=== PATIENT | male | born 1950 | race Caucasian/White ===

== ENCOUNTER 2018-10-01 13:23 | Emergency (ER) | payer MEDICARE, MEDICAID ==
[~2018-10-01] VITALS: Ht 170.2 cm; Wt 75.0 kg
[2018-10-01] MEDS ORDERED: METF-414 PO (13:30)
[2018-10-01] MEDS ORDERED: ASPI-1159 PO (13:30)
[2018-10-01 15:09] LABS: EOSINOPHILS % 4.5 % (0.0-5.0); HEMATOCRIT. 38.6 % (42.0-52.0); HEMOGLOBIN. 12.8 g/dL (14.0-18.0); LYMPHOCYTES % 11.5 % (20.0-50.0); MEAN CORPUSCULAR HEMOGLOBIN 27.4 pg (28.0-32.0); MEAN CORPUSCULAR VOLUME 82.4 fL (80.0-94.0); MEAN PLATELET VOLUME 8.5 fl (7.4-10.4); MONOCYTES % 14.5 % (2.0-8.0); NEUTROPHILS % 68.5 % (40.0-76.0); PLATELET 234 x1000/uL (130-400); RED BLOOD CELL COUNT 4.68 mill/uL (4.7-6.1); RED CELL DISTRIBUTION WIDTH 14.7 % (11.6-14.6)
[2018-10-01 15:13] LABS: CHLORIDE 96 mEq/L (98-107)
[2018-10-01 15:15] LABS: INR 1.1; PARTIAL THROMBOPLASTIN TIME 30.3 sec (23.4-31.0); PROTHROMBIN TIME 11.5 sec (9.1-11.1)
[2018-10-01] MEDS ORDERED: SODIUM CHLORIDE 0.9% 1,000 ML IV ONE (17:00)
[2018-10-01] MEDS ORDERED: MORPHINE SULFATE 4 MG/ML CPJ (NOT FOR IM USE) IV ONE (17:00)
[2018-10-01] MEDS ORDERED: ONDANSETRON HCL 4MG/2ML INJ IV ONE (17:00)
[2018-10-01 18:49] VITALS: BP 128/75
== END 2018-10-01 19:00 | disposition home or self-care (01) ==
LOC: ER 13:31
DX: K40.90 Unilateral inguinal hernia, without obstruction or gangrene, not specified as recurrent (principal); E11.649 Type 2 diabetes mellitus with hypoglycemia without coma; F17.210 Nicotine dependence, cigarettes, uncomplicated
CPT/HCPCS: 36415; 74176; 80053; 83690; 85025; 85610; 85730; 96360; 99284; J7030

== ENCOUNTER 2018-12-07 02:17 | Inpatient (IN) | payer MEDICARE, MEDICAID ==
[~2018-12-07] VITALS: Ht 152.4 cm; Wt 59.4 kg
[~2018-12-07 02:17] MED LIST: ASPI-1159 PO; METF-414 PO
[2018-12-07 03:07] LABS: BASOPHILS % 0.5 % (0.0-2.0); EOSINOPHILS % 14.3 % (0.0-5.0); HEMATOCRIT. 34.3 % (42.0-52.0); HEMOGLOBIN. 11.4 g/dL (14.0-18.0); LYMPHOCYTES % 12.5 % (20.0-50.0); MEAN CORPUSCULAR HEMOGLOBIN 27.5 pg (28.0-32.0); MEAN CORPUSCULAR VOLUME 82.7 fL (80.0-94.0); MEAN PLATELET VOLUME 8.8 fl (7.4-10.4); MONOCYTES % 9.3 % (2.0-8.0); NEUTROPHILS % 63.4 % (40.0-76.0); PLATELET 248 x1000/uL (130-400); RED BLOOD CELL COUNT 4.15 mill/uL (4.7-6.1); RED CELL DISTRIBUTION WIDTH 17.2 % (11.6-14.6)
[2018-12-07 03:08] LABS: CHLORIDE 101 mEq/L (98-107)
[2018-12-07] MEDS ORDERED: MORPHINE SULFATE 4 MG/ML CPJ (NOT FOR IM USE) IV PRN (08:30)
[2018-12-07] MEDS ORDERED: DOCUSATE SODIUM 100MG CAPSULE PO PRN (08:30)
[2018-12-07] MEDS ORDERED: MAGNESIUM/ALUMINUM HYDROXIDE/SIMETHICONE 30ML UDC PO PRN (08:30)
[2018-12-07] MEDS ORDERED: IPRATROPIUM/ALBUTEROL 0.5-3(2.5)MG/3ML NEB INH PRN (08:30)
[2018-12-07] MEDS ORDERED: NITROGLYCERIN 0.4MG TABLET SL SL PRN (08:30)
[2018-12-07] MEDS ORDERED: ZOLPIDEM TARTRATE 5MG TABLET PO PRN (08:30)
[2018-12-07] MEDS ORDERED: GUAIFENESIN 200MG/10ML SUGAR FREE UDC PO PRN (08:30)
[2018-12-07] MEDS ORDERED: LORAZEPAM 0.5MG TABLET PO PRN (08:30)
[2018-12-07] MEDS ORDERED: ACETAMINOPHEN 325MG TABLET PO PRN (08:30)
[2018-12-07] MEDS ORDERED: ONDANSETRON HCL 4MG/2ML INJ IV PRN (08:30)
[2018-12-07] MEDS ORDERED: CLONIDINE 0.1MG TABLET PO PRN (08:30)
[2018-12-07] MEDS ORDERED: TRAMADOL 50MG TABLET PO PRN (08:30)
[2018-12-07 09:24] LABS: T4 FREE 1.28 ng/dL (0.76-1.46)
[2018-12-07 09:38] LABS: INR 1.1; PARTIAL THROMBOPLASTIN TIME 30.1 sec (23.4-31.0); PROTHROMBIN TIME 11.4 sec (9.6-11.0)
[2018-12-07 09:44] LABS: FOLIC ACID (FOLATE) SERUM 6.2 ng/mL (>5.38)
[2018-12-07 10:15] VITALS: BP 132/88
[2018-12-07] MEDS: ENOXAPARIN 40MG/0.4ML SYR SUBCUT SCH (10:30)
[2018-12-07 12:00] VITALS: BP 111/73
[2018-12-07] MEDS: GUAIFENESIN/DM 600MG/30MG ER TAB 12HR PO SCH ×2 (12:18→20:36)
[2018-12-07] MEDS: FUROSEMIDE 40MG/4ML VIAL IVP SCH ×2 (12:18→16:52)
[2018-12-07] MEDS: FAMOTIDINE 20MG TABLET PO SCH ×2 (12:18→20:36)
[2018-12-07] MEDS ORDERED: DEXTROSE 50% WATER 50ML SYRINGE IV PRN (14:15)
[2018-12-07 16:00] VITALS: BP 115/82
[2018-12-07] MEDS: BLOOD SUGAR DIAGNOSTIC STRIP TEST SCH ×2 (16:42→20:37)
[2018-12-07] MEDS: INSULIN LISPRO 100 UNITS/ML SUBCUT SCH ×2 (16:56→20:37)
[2018-12-07 18:44] LABS: CREATINE KINASE 40 IU/L (39-308)
[2018-12-07 18:47] LABS: CREATINE KINASE MB FRACTION 1.3 ng/mL (0.5-3.6)
[2018-12-07 20:00] VITALS: BP 103/65
[2018-12-08] VITALS: BP 117/72
[2018-12-08 01:21] LABS: CREATINE KINASE 35 IU/L (39-308)
[2018-12-08 01:22] LABS: CREATINE KINASE MB FRACTION < 1.0 ng/mL (0.5-3.6)
[2018-12-08 04:00] VITALS: BP 112/70
[2018-12-08] MEDS: BLOOD SUGAR DIAGNOSTIC STRIP TEST SCH ×4 (06:25→21:28)
[2018-12-08] MEDS: INSULIN LISPRO 100 UNITS/ML SUBCUT SCH ×4 (06:25→21:28)
[2018-12-08] MEDS: FUROSEMIDE 40MG/4ML VIAL IVP SCH ×2 (06:25→17:44)
[2018-12-08 08:00] VITALS: BP 113/73
[2018-12-08] MEDS: GUAIFENESIN/DM 600MG/30MG ER TAB 12HR PO SCH ×2 (09:50→21:27)
[2018-12-08] MEDS: FAMOTIDINE 20MG TABLET PO SCH ×2 (09:50→21:27)
[2018-12-08 12:00] VITALS: BP 103/66
[2018-12-08 16:00] VITALS: BP 104/64
[2018-12-08 20:00] VITALS: BP 105/68
[2018-12-09] VITALS: BP 108/72
[2018-12-09 04:00] VITALS: BP 110/70
[2018-12-09] MEDS: FUROSEMIDE 40MG/4ML VIAL IVP SCH ×2 (06:20→16:23)
[2018-12-09] MEDS: INSULIN LISPRO 100 UNITS/ML SUBCUT SCH ×4 (06:20→21:03)
[2018-12-09] MEDS: BLOOD SUGAR DIAGNOSTIC STRIP TEST SCH ×4 (06:20→20:52)
[2018-12-09 08:00] VITALS: BP 112/68
[2018-12-09] MEDS: GUAIFENESIN/DM 600MG/30MG ER TAB 12HR PO SCH ×2 (08:49→20:52)
[2018-12-09] MEDS: FAMOTIDINE 20MG TABLET PO SCH ×2 (08:49→20:52)
[2018-12-09] MEDS: ASPIRIN 81MG TABLET PO SCH (08:49)
[2018-12-09] MEDS: ENOXAPARIN 40MG/0.4ML SYR SUBCUT SCH (08:50)
[2018-12-09 12:00] VITALS: BP 114/65
[2018-12-09 16:00] VITALS: BP 114/65
[2018-12-10] VITALS: BP 101/67
[2018-12-10 03:57] VITALS: BP 98/63
[2018-12-10] MEDS: FUROSEMIDE 40MG/4ML VIAL IVP SCH ×2 (06:11→17:34)
[2018-12-10] MEDS: INSULIN LISPRO 100 UNITS/ML SUBCUT SCH ×4 (07:40→22:09)
[2018-12-10] MEDS: BLOOD SUGAR DIAGNOSTIC STRIP TEST SCH ×4 (07:41→21:00)
[2018-12-10 08:00] VITALS: BP 101/68
[2018-12-10] MEDS: GUAIFENESIN/DM 600MG/30MG ER TAB 12HR PO SCH ×2 (08:50→21:46)
[2018-12-10] MEDS: ASPIRIN 81MG TABLET PO SCH (08:50)
[2018-12-10] MEDS: FAMOTIDINE 20MG TABLET PO SCH ×2 (08:50→21:46)
[2018-12-10] MEDS: ENOXAPARIN 40MG/0.4ML SYR SUBCUT SCH (08:50)
[2018-12-10 11:50] VITALS: BP 114/79
[2018-12-10 16:00] VITALS: BP 100/65
[2018-12-10 20:00] VITALS: BP 111/64
[2018-12-11] VITALS: BP 110/75
[2018-12-11 04:00] VITALS: BP 105/67
[2018-12-11] MEDS: BLOOD SUGAR DIAGNOSTIC STRIP TEST SCH ×2 (06:13→12:10)
[2018-12-11] MEDS: INSULIN LISPRO 100 UNITS/ML SUBCUT SCH ×2 (06:13→14:02)
[2018-12-11] MEDS: FUROSEMIDE 40MG/4ML VIAL IVP SCH (06:13)
[2018-12-11 08:00] VITALS: BP 109/66
[2018-12-11] MEDS: FAMOTIDINE 20MG TABLET PO SCH (09:31)
[2018-12-11] MEDS: GUAIFENESIN/DM 600MG/30MG ER TAB 12HR PO SCH (09:31)
[2018-12-11] MEDS: ASPIRIN 81MG TABLET PO SCH (09:31)
[2018-12-11] MEDS: ENOXAPARIN 40MG/0.4ML SYR SUBCUT SCH (09:32)
[2018-12-11 11:06] VITALS: BP 109/66
[2019-01-01] MEDS ORDERED: COR3 PO (07:59)
[2019-01-01] MEDS ORDERED: PULM50 HHN (07:59)
[2019-01-01] MEDS ORDERED: FURO-151 MT (07:59)
[2019-01-01] MEDS ORDERED: WARF5TAB76 MT (07:59)
[2019-01-01] MEDS ORDERED: LISI2.5T47 PO (07:59)
== END 2018-12-11 16:35 | disposition home health service (06) | DRG 189 ==
LOC: ER 02:17 → 8WST 04:05 → EDBEDREQ 04:09 → EDBEDREQTM 04:09 → ENRESERV 07:41 → SUPCPDRO 08:23 → 8WST 10:15
PROVIDERS: ADMIT Internal Medicine; ATTEND Internal Medicine
PROC: 0W9B3ZZ Drainage of Left Pleural Cavity, Percutaneous Approach (ICD-10-PCS; principal; 2018-12-07)
DX: J96.01 Acute respiratory failure with hypoxia (principal); I50.23 Acute on chronic systolic (congestive) heart failure; E44.1 Mild protein-calorie malnutrition; I42.9 Cardiomyopathy, unspecified; J91.8 Pleural effusion in other conditions classified elsewhere; E11.65 Type 2 diabetes mellitus with hyperglycemia; I11.0 Hypertensive heart disease with heart failure; D63.8 Anemia in other chronic diseases classified elsewhere; D72.1 Eosinophilia; I25.10 Atherosclerotic heart disease of native coronary artery without angina pectoris; Z79.4 Long term (current) use of insulin; Z79.82 Long term (current) use of aspirin; Z87.891 Personal history of nicotine dependence; Z95.1 Presence of aortocoronary bypass graft; Z95.5 Presence of coronary angioplasty implant and graft; Z95.810 Presence of automatic (implantable) cardiac defibrillator; Z68.25 Body mass index [BMI] 25.0-25.9, adult; Z79.899 Other long term (current) drug therapy
CPT/HCPCS: 32555; 36415; 71045; 78580; 80061; 82040; 82550; 82553; 82607; 82746; 82962; 83036; 83540; 83550; 83615; 83880; 84439; 84443; 84484; 85379; 88108; 88312; 93005; 93306; 93970; 97165; 99285; J1650; J1815; J1940

== ENCOUNTER 2018-12-29 07:07 | Inpatient (IN) | payer MEDICARE, MEDICAID ==
[~2018-12-29] VITALS: Ht 170.2 cm; Wt 57.7 kg
[2018-12-29] MEDS ORDERED: ASPIRIN 325MG EC TABLET PO ONE (08:15)
[2018-12-29] MEDS ORDERED: NITROGLYCERIN OINT 1GM/INCH UDPKT TD ONE (08:15)
[2018-12-29 08:25] LABS: BASOPHILS % 1.1 % (0.0-2.0); EOSINOPHILS % 7.4 % (0.0-5.0); HEMATOCRIT. 37.4 % (42.0-52.0); HEMOGLOBIN. 12.4 g/dL (14.0-18.0); LYMPHOCYTES % 12.8 % (20.0-50.0); MEAN CORPUSCULAR HEMOGLOBIN 27.4 pg (28.0-32.0); MEAN CORPUSCULAR VOLUME 82.5 fL (80.0-94.0); MEAN PLATELET VOLUME 9.2 fl (7.4-10.4); MONOCYTES % 5.7 % (2.0-8.0); PLATELET 259 x1000/uL (130-400); RED BLOOD CELL COUNT 4.53 mill/uL (4.7-6.1); RED CELL DISTRIBUTION WIDTH 17.1 % (11.6-14.6)
[2018-12-29 08:30] LABS: CHLORIDE 101 mEq/L (98-107)
[2018-12-29 08:31] LABS: INR 1.1; PROTHROMBIN TIME 11.3 sec (9.6-11.0)
[2018-12-29] MEDS ORDERED: FUROSEMIDE 40MG/4ML VIAL IVP ONE (08:45)
[2018-12-29 15:13] VITALS: BP 119/80
[2018-12-29] MEDS: FUROSEMIDE 40MG/4ML VIAL IVP SCH (17:24)
[2018-12-29] MEDS ORDERED: HYDROCODONE/ACETAMINOPHEN 5/325MG TABLET PO PRN (18:00)
[2018-12-29] MEDS ORDERED: ACETAMINOPHEN 650MG SUPP PR PRN (18:00)
[2018-12-29] MEDS ORDERED: ACETAMINOPHEN 325MG TABLET PO PRN (18:00)
[2018-12-29] MEDS ORDERED: ONDANSETRON HCL 4MG/2ML INJ IV PRN (18:00)
[2018-12-29] MEDS ORDERED: MAGNESIUM/ALUMINUM HYDROXIDE/SIMETHICONE 30ML UDC PO PRN (18:00)
[2018-12-29] MEDS ORDERED: DOCUSATE SODIUM 100MG CAPSULE PO PRN (18:00)
[2018-12-29] MEDS ORDERED: IPRATROPIUM/ALBUTEROL 0.5-3(2.5)MG/3ML NEB INH PRN (18:00)
[2018-12-29] MEDS ORDERED: GUAIFENESIN 200MG/10ML SUGAR FREE UDC PO PRN (18:00)
[2018-12-29] MEDS ORDERED: ACETAMINOPHEN 650MG/20.3ML UDC GT PRN (18:00)
[2018-12-29] MEDS ORDERED: CLONIDINE 0.1MG TABLET PO PRN (18:00)
[2018-12-29] MEDS ORDERED: DIPHENHYDRAMINE 50MG/ML VIAL IV PRN (18:00)
[2018-12-29] MEDS ORDERED: IPRATROPIUM/ALBUTEROL 0.5-3(2.5)MG/3ML NEB HHN PRN (18:15)
[2018-12-29 18:18] LABS: BG BASE EXCESS 3.1 mmol/L (-2.0-2.0); BG CARBOXYHEMOGLOBIN 0.6 % (0.5-1.5); BG DEOXYHEMOGLOBIN 0.8 % (0.0-5.0); BG HCO3 ACT 27.4 mmol/L (22.0-26.0); BG METHEMOGLOBIN 0.1 % (0.0-1.5); BG OXYGEN SATURATION 99.2 % (92.0-98.5); BG OXYHEMOGLOBIN 98.5 % (94.0-97.0); BG PCO2 40.8 mmHg (35.0-45.0); BG PH 7.445 (7.350-7.450); BG PO2 184.2 mmHg (75.0-100.0); BG SAMPLE SITE RIGHT BRACHIAL; BG TOTAL HEMOGLOBIN 12.1 g/dL (12.0-18.0); BG VENT MODE NASAL CANNULA
[2018-12-29] MEDS ORDERED: MORPHINE SULFATE 2 MG/ML CPJ (NOT FOR IM USE) IV PRN (18:30)
[2018-12-29] MEDS ORDERED: DEXTROSE 50% WATER 50ML SYRINGE IV PRN (18:30)
[2018-12-29 20:00] VITALS: BP 125/80
[2018-12-29] MEDS: ENOXAPARIN 40MG/0.4ML SYR SUBCUT SCH (20:00)
[2018-12-29 20:41] LABS: CLARITY URINE CLEAR (CLEAR); COLOR URINE YELLOW (YELLOW); KETONES URINE NEGATIVE (NEGATIVE); LEUKOCYTE ESTERASE URINE NEGATIVE (NEGATIVE); NITRITE URINE NEGATIVE (NEGATIVE); OCCULT BLOOD URINE NEGATIVE (NEGATIVE); PROTEIN URINE 1+ (NEGATIVE); SPECIFIC GRAVITY URINE 1.007 (1.005-1.030)
[2018-12-29] MEDS ORDERED: NA PHOS,M-B/NA PHOS,DI-BA ENEMA 118ML PR PRN (21:00)
[2018-12-29] MEDS: BLOOD SUGAR DIAGNOSTIC STRIP TEST SCH (21:08)
[2018-12-29] MEDS: INSULIN LISPRO 100 UNITS/ML SUBCUT SCH (21:08)
[2018-12-29] MEDS: SODIUM CHLORIDE 0.9% INJ 3ML FLUSH IVF SCH (21:10)
[2018-12-29] MEDS: IPRATROPIUM/ALBUTEROL 0.5-3(2.5)MG/3ML NEB HHN SCH (22:09)
[2018-12-30] VITALS: BP 120/81
[2018-12-30 04:00] VITALS: BP 110/76
[2018-12-30] MEDS: SODIUM CHLORIDE 0.9% INJ 3ML FLUSH IVF SCH ×2 (06:05→14:00)
[2018-12-30 06:12] LABS: BASOPHILS % 0.7 % (0.0-2.0); EOSINOPHILS % 7.3 % (0.0-5.0); HEMATOCRIT. 31.2 % (42.0-52.0); HEMOGLOBIN. 10.4 g/dL (14.0-18.0); LYMPHOCYTES % 10.4 % (20.0-50.0); MEAN CORPUSCULAR VOLUME 80.8 fL (80.0-94.0); MONOCYTES % 7.8 % (2.0-8.0); NEUTROPHILS % 73.8 % (40.0-76.0); PLATELET 224 x1000/uL (130-400); RED BLOOD CELL COUNT 3.86 mill/uL (4.7-6.1)
[2018-12-30 06:37] LABS: CHLORIDE 100 mEq/L (98-107)
[2018-12-30 06:45] LABS: HDL CHOLESTEROL 51 mg/dL (40-59)
[2018-12-30 06:47] LABS: LDL CHOLESTEROL 68 mg/dL (5-100)
[2018-12-30] MEDS: BLOOD SUGAR DIAGNOSTIC STRIP TEST SCH ×4 (07:40→20:28)
[2018-12-30 08:00] VITALS: BP 121/82
[2018-12-30] MEDS: INSULIN LISPRO 100 UNITS/ML SUBCUT SCH ×4 (08:10→20:28)
[2018-12-30] MEDS: IPRATROPIUM/ALBUTEROL 0.5-3(2.5)MG/3ML NEB HHN SCH ×4 (08:24→21:31)
[2018-12-30 09:13] LABS: CANNABINOID URINE SCREEN NEGATIVE (NEGATIVE)
[2018-12-30 09:15] LABS: METHADONE URINE SCREEN NEGATIVE (NEGATIVE)
[2018-12-30 09:16] LABS: PHENCYCLIDINE URINE SCREEN NEGATIVE (NEGATIVE)
[2018-12-30 09:17] LABS: *BARBITURATES SCREEN URINE NEGATIVE (NEGATIVE)
[2018-12-30 09:18] LABS: *BENZODIAZEPINES SCREEN URINE NEGATIVE (NEGATIVE); *COCAINE SCREEN URINE NEGATIVE (NEGATIVE)
[2018-12-30 09:20] LABS: OPIATES URINE SCREEN NEGATIVE (NEGATIVE)
[2018-12-30 09:21] LABS: *AMPHETAMINES SCREEN URINE NEGATIVE (NEGATIVE)
[2018-12-30] MEDS: FUROSEMIDE 40MG/4ML VIAL IVP SCH ×2 (09:27→16:44)
[2018-12-30 12:00] VITALS: BP 116/76
[2018-12-30 20:00] VITALS: BP 114/73
[2018-12-30] MEDS: ENOXAPARIN 40MG/0.4ML SYR SUBCUT SCH (20:00)
[2018-12-31] VITALS: BP 120/77
[2018-12-31] MEDS: SODIUM CHLORIDE 0.9% INJ 3ML FLUSH IVF SCH ×4 (00:11→21:21)
[2018-12-31 04:00] VITALS: BP 117/80
[2018-12-31] MEDS: BLOOD SUGAR DIAGNOSTIC STRIP TEST SCH ×4 (06:46→20:39)
[2018-12-31 08:00] VITALS: BP 105/68
[2018-12-31] MEDS: INSULIN LISPRO 100 UNITS/ML SUBCUT SCH ×4 (08:10→20:39)
[2018-12-31] MEDS: IPRATROPIUM/ALBUTEROL 0.5-3(2.5)MG/3ML NEB HHN SCH ×3 (08:22→20:14)
[2018-12-31] MEDS: FUROSEMIDE 40MG/4ML VIAL IVP SCH ×2 (09:17→17:03)
[2018-12-31] MEDS ORDERED: SODIUM BICARBONATE 4% (2.4MEQ) 5ML VIAL IV ONE (09:54)
[2018-12-31 12:00] VITALS: BP 129/78
[2018-12-31 16:00] VITALS: BP 118/59
[2018-12-31] MEDS: LISINOPRIL 2.5MG TABLET PO SCH (17:03)
[2018-12-31] MEDS ORDERED: WARFARIN SODIUM 7.5MG TABLET PO SCH (18:00)
[2018-12-31 20:00] VITALS: BP 105/67
[2018-12-31] MEDS: BUDESONIDE 0.5MG/2ML NEB HHN SCH (20:14)
[2018-12-31] MEDS: CARVEDILOL 3.125 MG TABLET PO SCH (20:40)
[2019-01-01] VITALS: BP 108/68
[2019-01-01] MEDS: IPRATROPIUM/ALBUTEROL 0.5-3(2.5)MG/3ML NEB HHN SCH ×3 (01:10→22:01)
[2019-01-01 04:00] VITALS: BP 101/69
[2019-01-01] MEDS: SODIUM CHLORIDE 0.9% INJ 3ML FLUSH IVF SCH ×4 (05:53→21:13)
[2019-01-01] MEDS: BLOOD SUGAR DIAGNOSTIC STRIP TEST SCH ×4 (06:58→20:34)
[2019-01-01 07:02] LABS: INR 1.1; PROTHROMBIN TIME 11.5 sec (9.6-11.0)
[2019-01-01] MEDS ORDERED: WARF5TAB76 MT (07:59)
[2019-01-01] MEDS ORDERED: PULM50 HHN (07:59)
[2019-01-01] MEDS ORDERED: COR3 PO (07:59)
[2019-01-01] MEDS ORDERED: LISI2.5T47 PO (07:59)
[2019-01-01] MEDS ORDERED: FURO-151 MT (07:59)
[2019-01-01 08:00] VITALS: BP 110/74
[2019-01-01] MEDS: BUDESONIDE 0.5MG/2ML NEB HHN SCH ×2 (08:05→22:01)
[2019-01-01] MEDS: INSULIN LISPRO 100 UNITS/ML SUBCUT SCH ×4 (08:10→21:13)
[2019-01-01] MEDS: LISINOPRIL 2.5MG TABLET PO SCH (09:00)
[2019-01-01] MEDS: CARVEDILOL 3.125 MG TABLET PO SCH ×2 (09:00→20:34)
[2019-01-01] MEDS: FUROSEMIDE 40MG/4ML VIAL IVP SCH ×2 (09:45→19:10)
[2019-01-01 12:00] VITALS: BP 118/79
[2019-01-01 16:00] VITALS: BP 116/79
[2019-01-01 16:45] LABS: CHLORIDE 96 mEq/L (98-107)
[2019-01-01 16:49] LABS: BASOPHILS % 0.8 % (0.0-2.0); EOSINOPHILS % 8.3 % (0.0-5.0); HEMATOCRIT. 35.8 % (42.0-52.0); HEMOGLOBIN. 11.8 g/dL (14.0-18.0); LYMPHOCYTES % 8.8 % (20.0-50.0); MEAN CORPUSCULAR HEMOGLOBIN 27.1 pg (28.0-32.0); MEAN PLATELET VOLUME 8.7 fl (7.4-10.4); MONOCYTES % 11.9 % (2.0-8.0); NEUTROPHILS % 70.2 % (40.0-76.0); PLATELET 242 x1000/uL (130-400); RED BLOOD CELL COUNT 4.37 mill/uL (4.7-6.1)
[2019-01-01] MEDS ORDERED: WARFARIN SODIUM 10MG TABLET PO NR (18:00)
[2019-01-01] MEDS: APIXABAN 5 MG TABLET PO SCH (19:10)
[2019-01-01 20:00] VITALS: BP 113/73
[2019-01-01] MEDS ORDERED: ENOXAPARIN 60MG/0.6ML SYR SUBCUT SCH (21:00)
[2019-01-02] VITALS: BP 111/73
[2019-01-02] MEDS: IPRATROPIUM/ALBUTEROL 0.5-3(2.5)MG/3ML NEB HHN SCH ×3 (02:35→15:35)
[2019-01-02 04:00] VITALS: BP 110/59
[2019-01-02] MEDS: BLOOD SUGAR DIAGNOSTIC STRIP TEST SCH ×2 (05:44→13:27)
[2019-01-02] MEDS: SODIUM CHLORIDE 0.9% INJ 3ML FLUSH IVF SCH (05:44)
[2019-01-02 08:00] VITALS: BP 124/71
[2019-01-02] MEDS: BUDESONIDE 0.5MG/2ML NEB HHN SCH (08:23)
[2019-01-02] MEDS: FUROSEMIDE 40MG/4ML VIAL IVP SCH (09:34)
[2019-01-02] MEDS: LISINOPRIL 2.5MG TABLET PO SCH (09:34)
[2019-01-02] MEDS: CARVEDILOL 3.125 MG TABLET PO SCH (09:35)
[2019-01-02] MEDS: APIXABAN 5 MG TABLET PO SCH (09:41)
[2019-01-02] MEDS: INSULIN LISPRO 100 UNITS/ML SUBCUT SCH ×2 (09:54→13:50)
[2019-01-02 12:00] VITALS: BP 107/65
[2019-01-02] MEDS ORDERED: APIX5TAB PO (13:03)
[2019-01-02 16:00] VITALS: BP 126/68
[2019-01-02 16:20] VITALS: BP 126/68
== END 2019-01-02 18:50 | disposition home or self-care (01) | DRG 291 ==
LOC: ER 07:07 → 7WST 09:52 → EDBEDREQ 10:10 → ENRESERV 14:18
PROVIDERS: ADMIT Family Medicine; ATTEND Family Medicine
PROC: 0W9B3ZZ Drainage of Left Pleural Cavity, Percutaneous Approach (ICD-10-PCS; principal; 2018-12-31)
DX: I11.0 Hypertensive heart disease with heart failure (principal); J96.00 Acute respiratory failure, unspecified whether with hypoxia or hypercapnia; J44.1 Chronic obstructive pulmonary disease with (acute) exacerbation; I31.3 Pericardial effusion (noninflammatory); J84.9 Interstitial pulmonary disease, unspecified; J91.8 Pleural effusion in other conditions classified elsewhere; I50.43 Acute on chronic combined systolic (congestive) and diastolic (congestive) heart failure; I25.5 Ischemic cardiomyopathy; D72.1 Eosinophilia; E11.9 Type 2 diabetes mellitus without complications; E78.5 Hyperlipidemia, unspecified; I25.10 Atherosclerotic heart disease of native coronary artery without angina pectoris; I25.2 Old myocardial infarction; Z87.891 Personal history of nicotine dependence; Z90.49 Acquired absence of other specified parts of digestive tract; Z95.0 Presence of cardiac pacemaker; Z95.1 Presence of aortocoronary bypass graft; Z95.5 Presence of coronary angioplasty implant and graft; Z95.810 Presence of automatic (implantable) cardiac defibrillator; Z79.82 Long term (current) use of aspirin; Z79.899 Other long term (current) drug therapy
CPT/HCPCS: 32555; 36415; 36600; 71045; 71250; 80061; 80305; 82375; 82805; 82962; 83605; 83880; 84484; 93005; 93306; 94640; 96374; 96375; 99291; J1815; J1940; J3490; J7620; J7626

== ENCOUNTER 2019-01-26 22:57 | Inpatient (IN) | payer MEDICARE, MEDICAID ==
[~2019-01-26] VITALS: Ht 167.6 cm; Wt 59.4 kg
[~2019-01-26 22:57] MED LIST changes: +APIX5TAB PO; -ASPI-1159 PO; +COR3 PO; +FURO-151 MT
[2019-01-27] MEDS ORDERED: IPRATROPIUM/ALBUTEROL 0.5-3(2.5)MG/3ML NEB INH PRN (01:00)
[2019-01-27] MEDS ORDERED: ACETAMINOPHEN 325MG TABLET PO PRN (01:00)
[2019-01-27 01:15] LABS: BASOPHILS % 0.5 % (0.0-2.0); EOSINOPHILS % 1.7 % (0.0-5.0); HEMATOCRIT. 35.4 % (42.0-52.0); HEMOGLOBIN. 11.6 g/dL (14.0-18.0); LYMPHOCYTES % 7.8 % (20.0-50.0); MEAN CORPUSCULAR HEMOGLOBIN 27.3 pg (28.0-32.0); MEAN CORPUSCULAR VOLUME 83.3 fL (80.0-94.0); MEAN PLATELET VOLUME 8.8 fl (7.4-10.4); MONOCYTES % 7.6 % (2.0-8.0); NEUTROPHILS % 82.4 % (40.0-76.0); PLATELET 217 x1000/uL (130-400); RED BLOOD CELL COUNT 4.25 mill/uL (4.7-6.1); RED CELL DISTRIBUTION WIDTH 17.8 % (11.6-14.6)
[2019-01-27 01:22] LABS: CHLORIDE 102 mEq/L (98-107)
[2019-01-27 01:24] LABS: INR 1.1; PARTIAL THROMBOPLASTIN TIME 27.5 sec (23.4-31.0); PROTHROMBIN TIME 11.3 sec (9.6-11.0)
[2019-01-27] MEDS ORDERED: METHYLPREDNISOLONE SOD SUCC 125 MG/2 ML VIAL IV NR (02:00)
[2019-01-27] MEDS ORDERED: ENOXAPARIN 40MG/0.4ML SYR SUBCUT NR (02:00)
[2019-01-27] MEDS ORDERED: ASPIRIN 81MG EC TABLET PO NR (04:45)
[2019-01-27] MEDS ORDERED: METOPROLOL TARTRATE 25MG TABLET PO NR (04:45)
[2019-01-27] MEDS ORDERED: METOPROLOL TARTRATE 5MG/5ML VIAL IV NR (04:45)
[2019-01-27 06:20] LABS: CLARITY URINE CLOUDY (CLEAR); COLOR URINE DARK YELLOW (YELLOW); KETONES URINE TRACE (NEGATIVE); LEUKOCYTE ESTERASE URINE NEGATIVE (NEGATIVE); NITRITE URINE NEGATIVE (NEGATIVE); OCCULT BLOOD URINE 1+ (NEGATIVE); PROTEIN URINE 4+ (NEGATIVE); SPECIFIC GRAVITY URINE 1.038 (1.005-1.030)
[2019-01-27 06:35] LABS: *AMPHETAMINES SCREEN URINE NEGATIVE (NEGATIVE); *BARBITURATES SCREEN URINE NEGATIVE (NEGATIVE); *BENZODIAZEPINES SCREEN URINE NEGATIVE (NEGATIVE); *COCAINE SCREEN URINE NEGATIVE (NEGATIVE)
[2019-01-27 06:36] LABS: CANNABINOID URINE SCREEN NEGATIVE (NEGATIVE); METHADONE URINE SCREEN NEGATIVE (NEGATIVE); OPIATES URINE SCREEN NEGATIVE (NEGATIVE); PHENCYCLIDINE URINE SCREEN NEGATIVE (NEGATIVE)
[2019-01-27 08:00] VITALS: BP 128/87
[2019-01-27] MEDS ORDERED: METHYLPREDNISOLONE SOD SUCC 125 MG/2 ML VIAL IV SCH (08:00)
[2019-01-27] MEDS ORDERED: FUROSEMIDE 40MG/4ML VIAL IV SCH (09:00)
[2019-01-27] MEDS: FOLIC ACID 1MG TABLET PO SCH (09:21)
[2019-01-27 12:00] VITALS: BP 132/83
[2019-01-27] MEDS: ENOXAPARIN 60MG/0.6ML SYR SUBCUT SCH (15:00)
[2019-01-27] MEDS ORDERED: IPRATROPIUM/ALBUTEROL 0.5-3(2.5)MG/3ML NEB HHN PRN (15:15)
[2019-01-27 15:38] LABS: BG BASE EXCESS -1.6 mmol/L (-2.0-2.0); BG CARBOXYHEMOGLOBIN 0.2 % (0.5-1.5); BG DEOXYHEMOGLOBIN 0.5 % (0.0-5.0); BG METHEMOGLOBIN 0.3 % (0.0-1.5); BG OXYGEN SATURATION 99.5 % (92.0-98.5); BG PCO2 33.4 mmHg (35.0-45.0); BG PH 7.437 (7.350-7.450); BG PO2 286.4 mmHg (75.0-100.0); BG SAMPLE SITE RIGHT BRACHIAL; BG TOTAL HEMOGLOBIN 11.8 g/dL (12.0-18.0); BG VENT MODE MASK - NRB
[2019-01-27 17:06] VITALS: BP 121/88
[2019-01-27 17:40] LABS: CREATINE KINASE MB FRACTION 2.2 ng/mL (0.5-3.6)
[2019-01-27] MEDS ORDERED: INSULIN LISPRO 100 UNITS/ML SUBCUT ONE (17:45)
[2019-01-27] MEDS: INSULIN LISPRO 100 UNITS/ML SUBCUT SCH ×2 (17:55→21:48)
[2019-01-27] MEDS: BLOOD SUGAR DIAGNOSTIC STRIP TEST SCH ×2 (17:56→20:25)
[2019-01-27] MEDS: FUROSEMIDE 40MG/4ML VIAL IV SCH (17:56)
[2019-01-27] MEDS ORDERED: WARFARIN SODIUM 7.5MG TABLET PO SCH (18:00)
[2019-01-27 20:00] VITALS: BP 131/91
[2019-01-27] MEDS ORDERED: ENOXAPARIN 40MG/0.4ML SYR SUBCUT SCH (21:00)
[2019-01-27] MEDS: INSULIN GLARGINE UD 100 UNITS/ML SYR SUBCUT SCH (21:45)
[2019-01-27] MEDS: IPRATROPIUM/ALBUTEROL 0.5-3(2.5)MG/3ML NEB HHN SCH (22:06)
[2019-01-28] VITALS: BP 120/78
[2019-01-28] MEDS: ENOXAPARIN 60MG/0.6ML SYR SUBCUT SCH (01:43)
[2019-01-28 04:00] VITALS: BP 127/97
[2019-01-28] MEDS: BLOOD SUGAR DIAGNOSTIC STRIP TEST SCH ×4 (05:48→21:00)
[2019-01-28] MEDS: FUROSEMIDE 40MG/4ML VIAL IV SCH ×2 (06:01→17:35)
[2019-01-28] MEDS: INSULIN LISPRO 100 UNITS/ML SUBCUT SCH ×4 (06:05→21:00)
[2019-01-28 06:42] LABS: INR 1.1; PROTHROMBIN TIME 11.4 sec (9.6-11.0)
[2019-01-28 06:43] LABS: HEMATOCRIT. 34.1 % (42.0-52.0); HEMOGLOBIN. 11.1 g/dL (14.0-18.0); MEAN CORPUSCULAR HEMOGLOBIN 27.1 pg (28.0-32.0); MEAN PLATELET VOLUME 9.4 fl (7.4-10.4); PLATELET 208 x1000/uL (130-400); RED BLOOD CELL COUNT 4.11 mill/uL (4.7-6.1); RED CELL DISTRIBUTION WIDTH 17.5 % (11.6-14.6)
[2019-01-28 07:02] LABS: CHLORIDE 100 mEq/L (98-107)
[2019-01-28] MEDS ORDERED: ASPIRIN 81MG EC TABLET PO SCH (09:00)
[2019-01-28] MEDS: FOLIC ACID 1MG TABLET PO SCH ×2 (09:00→09:45)
[2019-01-28] MEDS: IPRATROPIUM/ALBUTEROL 0.5-3(2.5)MG/3ML NEB HHN SCH ×4 (09:32→21:16)
[2019-01-28 09:34] LABS: BG BASE EXCESS 2.6 mmol/L (-2.0-2.0); BG CARBOXYHEMOGLOBIN 0.3 % (0.5-1.5); BG DEOXYHEMOGLOBIN 7.7 % (0.0-5.0); BG FRACTION INSPIRED OXYGEN 21; BG HCO3 ACT 27.4 mmol/L (22.0-26.0); BG METHEMOGLOBIN 0.3 % (0.0-1.5); BG OXYGEN SATURATION 92.3 % (92.0-98.5); BG OXYHEMOGLOBIN 91.7 % (94.0-97.0); BG PCO2 42.7 mmHg (35.0-45.0); BG PH 7.425 (7.350-7.450); BG PO2 65.8 mmHg (75.0-100.0); BG SAMPLE SITE RIGHT BRACHIAL; BG TOTAL HEMOGLOBIN 13.7 g/dL (12.0-18.0); BG VENT MODE ROOM AIR
[2019-01-28] MEDS: INSULIN GLARGINE UD 100 UNITS/ML SYR SUBCUT SCH ×2 (09:44→22:00)
[2019-01-28 12:00] VITALS: BP 112/72
[2019-01-28] MEDS: ENOXAPARIN 40MG/0.4ML SYR SUBCUT SCH (14:00)
[2019-01-28 16:00] VITALS: BP 100/60
[2019-01-28 20:00] VITALS: BP 110/74
[2019-01-28] MEDS ORDERED: FURO-151 PO (20:23)
[2019-01-28] MEDS ORDERED: METF-415 PO (20:25)
[2019-01-28] MEDS ORDERED: SPIR25TA6 PO (20:29)
[2019-01-28] MEDS ORDERED: FERR325T6 MT (20:29)
[2019-01-28] MEDS ORDERED: LOSA25TA26 MT (20:29)
[2019-01-28] MEDS ORDERED: ATOR40TA70 PO (20:31)
[2019-01-28] MEDS ORDERED: CLOP75TA4 PO (20:34)
[2019-01-28] MEDS ORDERED: BUDE6.9H IH (20:39)
[2019-01-28] MEDS ORDERED: ASPI-1393 PO (20:39)
[2019-01-28] MEDS ORDERED: CHOL100044 PO (20:39)
[2019-01-28 22:56] LABS: PLATELET ESTIMATE NORMAL
[2019-01-29] VITALS: BP 126/80
[2019-01-29] MEDS: HYDROCODONE/ACETAMINOPHEN 5/325MG TABLET PO PRN ×2 (02:23→21:37)
[2019-01-29 04:00] VITALS: BP 118/77
[2019-01-29 06:30] LABS: HEMATOCRIT. 31.4 % (42.0-52.0); HEMOGLOBIN. 10.6 g/dL (14.0-18.0); MEAN CORPUSCULAR HEMOGLOBIN 27.3 pg (28.0-32.0); MEAN CORPUSCULAR VOLUME 81.4 fL (80.0-94.0); PLATELET 211 x1000/uL (130-400); RED BLOOD CELL COUNT 3.86 mill/uL (4.7-6.1); RED CELL DISTRIBUTION WIDTH 17.4 % (11.6-14.6)
[2019-01-29 06:32] LABS: INR 1.2
[2019-01-29 06:51] LABS: CHLORIDE 98 mEq/L (98-107)
[2019-01-29] MEDS: INSULIN LISPRO 100 UNITS/ML SUBCUT SCH ×4 (06:54→21:00)
[2019-01-29] MEDS: BLOOD SUGAR DIAGNOSTIC STRIP TEST SCH ×4 (06:54→21:37)
[2019-01-29] MEDS: FUROSEMIDE 40MG/4ML VIAL IV SCH ×2 (07:00→17:59)
[2019-01-29] MEDS: DEXTROSE 5% WATER 1,000 ML IV SCH ×2 (07:00→21:36)
[2019-01-29 08:00] VITALS: BP 119/83
[2019-01-29] MEDS: IPRATROPIUM/ALBUTEROL 0.5-3(2.5)MG/3ML NEB HHN SCH ×4 (08:48→20:57)
[2019-01-29] MEDS: ENOXAPARIN 40MG/0.4ML SYR SUBCUT SCH (09:00)
[2019-01-29] MEDS: FOLIC ACID 1MG TABLET PO SCH (10:03)
[2019-01-29] MEDS: INSULIN GLARGINE UD 100 UNITS/ML SYR SUBCUT SCH ×2 (10:04→21:41)
[2019-01-29 12:00] VITALS: BP 101/66
[2019-01-29 13:33] LABS: PLATELET ESTIMATE NORMAL
[2019-01-29 16:00] VITALS: BP 111/71
[2019-01-29] MEDS: TAMSULOSIN HCL 0.4MG SR CAPSULE PO SCH (17:58)
[2019-01-29 20:00] VITALS: BP 109/72
[2019-01-30] MEDS: BLOOD SUGAR DIAGNOSTIC STRIP TEST SCH ×4 (05:47→21:42)
[2019-01-30] MEDS: INSULIN LISPRO 100 UNITS/ML SUBCUT SCH ×4 (05:47→21:00)
[2019-01-30] MEDS: FUROSEMIDE 40MG/4ML VIAL IV SCH ×2 (05:47→17:15)
[2019-01-30 06:16] LABS: INR 1.1; PROTHROMBIN TIME 11.7 sec (9.6-11.0)
[2019-01-30 06:47] LABS: HEMATOCRIT. 36.3 % (42.0-52.0); HEMOGLOBIN. 12.2 g/dL (14.0-18.0); MEAN CORPUSCULAR HEMOGLOBIN 27.4 pg (28.0-32.0); MEAN CORPUSCULAR VOLUME 81.4 fL (80.0-94.0); MEAN PLATELET VOLUME 9.2 fl (7.4-10.4); PLATELET 211 x1000/uL (130-400); RED BLOOD CELL COUNT 4.46 mill/uL (4.7-6.1); RED CELL DISTRIBUTION WIDTH 17.9 % (11.6-14.6)
[2019-01-30 07:30] LABS: CHLORIDE 97 mEq/L (98-107)
[2019-01-30 08:00] VITALS: BP 110/75
[2019-01-30] MEDS: ENOXAPARIN 40MG/0.4ML SYR SUBCUT SCH (09:00)
[2019-01-30] MEDS: IPRATROPIUM/ALBUTEROL 0.5-3(2.5)MG/3ML NEB HHN SCH ×4 (09:01→21:04)
[2019-01-30] MEDS: FOLIC ACID 1MG TABLET PO SCH (09:45)
[2019-01-30] MEDS: TAMSULOSIN HCL 0.4MG SR CAPSULE PO SCH (09:45)
[2019-01-30] MEDS: INSULIN GLARGINE UD 100 UNITS/ML SYR SUBCUT SCH (09:55)
[2019-01-30 12:00] VITALS: BP 101/72
[2019-01-30 16:00] VITALS: BP 98/68
[2019-01-30 16:10] LABS: PLATELET ESTIMATE NORMAL
[2019-01-30 20:00] VITALS: BP 100/60
[2019-01-31] VITALS (53 sets, daily range): BP systolic 89–159; BP diastolic 23–93
[2019-01-31] MEDS: INSULIN LISPRO 100 UNITS/ML SUBCUT SCH ×4 (06:06→21:12)
[2019-01-31] MEDS: BLOOD SUGAR DIAGNOSTIC STRIP TEST SCH ×4 (06:06→21:11)
[2019-01-31] MEDS: FUROSEMIDE 40MG/4ML VIAL IV SCH (06:06)
[2019-01-31 06:38] LABS: CHLORIDE 99 mEq/L (98-107)
[2019-01-31 06:45] LABS: HEMATOCRIT. 32.7 % (42.0-52.0); HEMOGLOBIN. 11.1 g/dL (14.0-18.0); MEAN CORPUSCULAR HEMOGLOBIN 27.6 pg (28.0-32.0); MEAN CORPUSCULAR VOLUME 81.8 fL (80.0-94.0); MEAN PLATELET VOLUME 8.9 fl (7.4-10.4); PLATELET 204 x1000/uL (130-400); RED CELL DISTRIBUTION WIDTH 17.5 % (11.6-14.6)
[2019-01-31] MEDS ORDERED: TETRACAINE/BENZOCAINE/BUTAMBEN 20 GM SPRAY MM ONE (06:49)
[2019-01-31] MEDS ORDERED: SKIN ADHESIVE 0.7 GM EA TOP ONE (06:49)
[2019-01-31] MEDS ORDERED: BACITRACIN 15GM TUBE TOP ONE (06:49)
[2019-01-31] MEDS ORDERED: LIDOCAINE HCL/EPINEPHRINE 1%-EPI 1:100,000 20 ML VIAL ONE (06:50)
[2019-01-31] MEDS ORDERED: BACITRACIN 50,000 UNITS/VIAL ONE (06:50)
[2019-01-31] MEDS ORDERED: NORMAL SALINE 0.9% 10 ML SYR ONE (06:50)
[2019-01-31] MEDS ORDERED: TALC 3 GM VIAL IX SCH ×2 (07:30→13:00)
[2019-01-31] MEDS: DEXTROSE 50% WATER 50ML SYRINGE IV PRN ×2 (08:41→17:15)
[2019-01-31] MEDS: ENOXAPARIN 40MG/0.4ML SYR SUBCUT SCH (09:00)
[2019-01-31] MEDS: FOLIC ACID 1MG TABLET PO SCH (09:00)
[2019-01-31] MEDS: TAMSULOSIN HCL 0.4MG SR CAPSULE PO SCH (09:00)
[2019-01-31] MEDS: IPRATROPIUM/ALBUTEROL 0.5-3(2.5)MG/3ML NEB HHN SCH ×4 (09:02→20:25)
[2019-01-31] MEDS ORDERED: MIDAZOLAM HCL 2 MG/2 ML VIAL ONE (09:46)
[2019-01-31] MEDS ORDERED: FENTANYL CITRATE/PF 50MCG/ML 2ML VIAL ONE (09:46)
[2019-01-31] MEDS ORDERED: ETOMIDATE 2MG/ML 10ML VIAL IV ONE (10:50)
[2019-01-31] MEDS ORDERED: VECURONIUM BROMIDE 10 MG/VIAL IV ONE (10:50)
[2019-01-31] MEDS ORDERED: SUCCINYLCHOLINE CHLORIDE 200MG/10ML IV ONE (10:50)
[2019-01-31] MEDS ORDERED: EPINEPHRINE 1:1000 1 MG/ML AMP ONE (10:50)
[2019-01-31] MEDS ORDERED: GLYCOPYRROLATE 0.2 MG/ML 2ML VIAL ONE (10:53)
[2019-01-31] MEDS ORDERED: NEOSTIGMINE METHYLSULFATE 1MG/ML 10 ML VIAL ONE (10:53)
[2019-01-31] MEDS ORDERED: ONDANSETRON HCL 4MG/2ML INJ ONE (11:25)
[2019-01-31] MEDS ORDERED: METOCLOPRAMIDE HCL 10MG/2ML VIAL ONE (11:25)
[2019-01-31] MEDS ORDERED: MORPHINE SULFATE 4 MG/ML CPJ (NOT FOR IM USE) IV ONE (12:15)
[2019-01-31] MEDS: MORPHINE SULFATE 4 MG/ML CPJ (NOT FOR IM USE) IV PRN ×3 (12:30→21:11)
[2019-01-31 13:31] LABS: HEMATOCRIT. 35.5 % (42.0-52.0); HEMOGLOBIN. 11.7 g/dL (14.0-18.0); MEAN CORPUSCULAR HEMOGLOBIN 27.1 pg (28.0-32.0); MEAN CORPUSCULAR VOLUME 82.5 fL (80.0-94.0); MEAN PLATELET VOLUME 8.9 fl (7.4-10.4); PLATELET 211 x1000/uL (130-400); RED CELL DISTRIBUTION WIDTH 18.2 % (11.6-14.6)
[2019-01-31 13:35] LABS: INR 1.2; PROTHROMBIN TIME 11.9 sec (9.6-11.0)
[2019-01-31 14:02] LABS: CHLORIDE 99 mEq/L (98-107)
[2019-01-31 16:05] LABS: PLATELET ESTIMATE NORMAL
[2019-01-31] MEDS ORDERED: METFORMIN HCL 850MG TABLET PO SCH (17:00)
[2019-01-31 17:31] LABS: PLATELET ESTIMATE NORMAL
[2019-02-01] VITALS (63 sets, daily range): BP systolic 71–125; BP diastolic 27–113
[2019-02-01] MEDS: MORPHINE SULFATE 4 MG/ML CPJ (NOT FOR IM USE) IV PRN ×2 (00:29→10:52)
[2019-02-01 05:35] LABS: HEMATOCRIT. 34.8 % (42.0-52.0); HEMOGLOBIN. 11.7 g/dL (14.0-18.0); MEAN CORPUSCULAR HEMOGLOBIN 27.6 pg (28.0-32.0); MEAN CORPUSCULAR VOLUME 82.1 fL (80.0-94.0); MEAN PLATELET VOLUME 9.1 fl (7.4-10.4); PLATELET 200 x1000/uL (130-400); RED BLOOD CELL COUNT 4.24 mill/uL (4.7-6.1); RED CELL DISTRIBUTION WIDTH 17.9 % (11.6-14.6)
[2019-02-01 05:43] LABS: CHLORIDE 98 mEq/L (98-107)
[2019-02-01] MEDS: IPRATROPIUM/ALBUTEROL 0.5-3(2.5)MG/3ML NEB HHN SCH ×2 (07:55→21:11)
[2019-02-01] MEDS: BLOOD SUGAR DIAGNOSTIC STRIP TEST SCH ×5 (08:03→21:27)
[2019-02-01] MEDS: ATORVASTATIN CALCIUM 40MG TABLET PO SCH (08:12)
[2019-02-01] MEDS: CHOLECALCIFEROL (D3) 1000 UNIT TABLET PO SCH (08:12)
[2019-02-01] MEDS: FOLIC ACID 1MG TABLET PO SCH (08:13)
[2019-02-01] MEDS: TAMSULOSIN HCL 0.4MG SR CAPSULE PO SCH (08:13)
[2019-02-01 10:03] LABS: PLATELET ESTIMATE NORMAL
[2019-02-01] MEDS ORDERED: DEXTROSE 50% WATER 50ML SYRINGE IV PRN (12:30)
[2019-02-01] MEDS: INSULIN LISPRO 100 UNITS/ML SUBCUT SCH ×3 (12:32→21:34)
[2019-02-01] MEDS: FAMOTIDINE 20MG TABLET PO SCH ×2 (12:33→21:33)
[2019-02-02] VITALS (17 sets, daily range): BP systolic 102–125; BP diastolic 66–82
[2019-02-02] MEDS: BLOOD SUGAR DIAGNOSTIC STRIP TEST SCH ×4 (06:28→20:55)
[2019-02-02 07:15] LABS: HEMATOCRIT. 35.1 % (42.0-52.0); HEMOGLOBIN. 11.6 g/dL (14.0-18.0); MEAN CORPUSCULAR HEMOGLOBIN 27.3 pg (28.0-32.0); MEAN CORPUSCULAR VOLUME 82.6 fL (80.0-94.0); MEAN PLATELET VOLUME 8.9 fl (7.4-10.4); PLATELET 195 x1000/uL (130-400); RED BLOOD CELL COUNT 4.24 mill/uL (4.7-6.1); RED CELL DISTRIBUTION WIDTH 17.7 % (11.6-14.6)
[2019-02-02 07:36] LABS: CHLORIDE 94 mEq/L (98-107)
[2019-02-02] MEDS: IPRATROPIUM/ALBUTEROL 0.5-3(2.5)MG/3ML NEB HHN SCH ×4 (07:39→20:44)
[2019-02-02] MEDS: INSULIN LISPRO 100 UNITS/ML SUBCUT SCH ×4 (07:45→21:05)
[2019-02-02] MEDS: FAMOTIDINE 20MG TABLET PO SCH ×2 (09:05→21:05)
[2019-02-02] MEDS: CHOLECALCIFEROL (D3) 1000 UNIT TABLET PO SCH (09:05)
[2019-02-02] MEDS: TAMSULOSIN HCL 0.4MG SR CAPSULE PO SCH (09:05)
[2019-02-02] MEDS: ATORVASTATIN CALCIUM 40MG TABLET PO SCH (09:06)
[2019-02-02] MEDS: FOLIC ACID 1MG TABLET PO SCH (09:06)
[2019-02-02] MEDS: MORPHINE SULFATE 4 MG/ML CPJ (NOT FOR IM USE) IV PRN (09:06)
[2019-02-02] MEDS ORDERED: ONDANSETRON HCL 4MG/2ML INJ IV PRN (10:15)
[2019-02-02 12:40] LABS: PLATELET ESTIMATE NORMAL
[2019-02-03] VITALS (12 sets, daily range): BP systolic 97–120; BP diastolic 56–84
[2019-02-03] MEDS ORDERED: ZOLPIDEM TARTRATE 5MG TABLET PO PRN
[2019-02-03] MEDS: BLOOD SUGAR DIAGNOSTIC STRIP TEST SCH ×4 (06:09→21:00)
[2019-02-03 06:43] LABS: HEMATOCRIT. 30.3 % (42.0-52.0); HEMOGLOBIN. 10.1 g/dL (14.0-18.0); MEAN CORPUSCULAR HEMOGLOBIN 27.3 pg (28.0-32.0); MEAN PLATELET VOLUME 8.8 fl (7.4-10.4); PLATELET 176 x1000/uL (130-400); RED BLOOD CELL COUNT 3.69 mill/uL (4.7-6.1); RED CELL DISTRIBUTION WIDTH 17.6 % (11.6-14.6)
[2019-02-03 07:06] LABS: CHLORIDE 95 mEq/L (98-107)
[2019-02-03] MEDS: IPRATROPIUM/ALBUTEROL 0.5-3(2.5)MG/3ML NEB HHN SCH ×4 (09:22→20:46)
[2019-02-03] MEDS: CHOLECALCIFEROL (D3) 1000 UNIT TABLET PO SCH (09:49)
[2019-02-03] MEDS: ATORVASTATIN CALCIUM 40MG TABLET PO SCH (09:49)
[2019-02-03] MEDS: FAMOTIDINE 20MG TABLET PO SCH ×2 (09:49→21:12)
[2019-02-03] MEDS: TAMSULOSIN HCL 0.4MG SR CAPSULE PO SCH (09:50)
[2019-02-03] MEDS: INSULIN LISPRO 100 UNITS/ML SUBCUT SCH ×4 (09:50→21:13)
[2019-02-03] MEDS: FOLIC ACID 1MG TABLET PO SCH (09:50)
[2019-02-03 14:18] LABS: PLATELET ESTIMATE NORMAL
[2019-02-03] MEDS: MORPHINE SULFATE 4 MG/ML CPJ (NOT FOR IM USE) IV PRN ×2 (16:21→20:06)
[2019-02-03] MEDS: INSULIN GLARGINE UD 100 UNITS/ML SYR SUBCUT SCH (21:13)
[2019-02-04] VITALS (11 sets, daily range): BP systolic 99–120; BP diastolic 62–77
[2019-02-04 06:18] LABS: HEMATOCRIT. 30.3 % (42.0-52.0); HEMOGLOBIN. 10.2 g/dL (14.0-18.0); MEAN CORPUSCULAR HEMOGLOBIN 27.7 pg (28.0-32.0); MEAN CORPUSCULAR VOLUME 82.3 fL (80.0-94.0); MEAN PLATELET VOLUME 8.9 fl (7.4-10.4); PLATELET 186 x1000/uL (130-400); RED BLOOD CELL COUNT 3.68 mill/uL (4.7-6.1); RED CELL DISTRIBUTION WIDTH 17.1 % (11.6-14.6)
[2019-02-04 06:33] LABS: CHLORIDE 97 mEq/L (98-107)
[2019-02-04] MEDS: BLOOD SUGAR DIAGNOSTIC STRIP TEST SCH ×4 (06:39→21:00)
[2019-02-04] MEDS: FOLIC ACID 1MG TABLET PO SCH (07:44)
[2019-02-04] MEDS: CHOLECALCIFEROL (D3) 1000 UNIT TABLET PO SCH (07:44)
[2019-02-04] MEDS: TAMSULOSIN HCL 0.4MG SR CAPSULE PO SCH (07:44)
[2019-02-04] MEDS: FAMOTIDINE 20MG TABLET PO SCH ×2 (07:44→21:12)
[2019-02-04] MEDS: ATORVASTATIN CALCIUM 40MG TABLET PO SCH (07:46)
[2019-02-04] MEDS: INSULIN LISPRO 100 UNITS/ML SUBCUT SCH ×4 (07:46→21:00)
[2019-02-04] MEDS: INSULIN GLARGINE UD 100 UNITS/ML SYR SUBCUT SCH ×2 (07:47→21:13)
[2019-02-04] MEDS: IPRATROPIUM/ALBUTEROL 0.5-3(2.5)MG/3ML NEB HHN SCH ×3 (08:10→20:05)
[2019-02-04 10:54] LABS: PLATELET ESTIMATE NORMAL
[2019-02-04] MEDS ORDERED: SODIUM CHLORIDE 0.9% 1,000 ML IV SCH (11:00)
[2019-02-04] MEDS: MORPHINE SULFATE 4 MG/ML CPJ (NOT FOR IM USE) IV PRN ×2 (12:17→22:05)
[2019-02-04] MEDS ORDERED: DEXT 5%/0.9% NACL 1,000 ML IV SCH (19:00)
[2019-02-05] VITALS (9 sets, daily range): BP systolic 105–126; BP diastolic 72–92
[2019-02-05] MEDS: MORPHINE SULFATE 4 MG/ML CPJ (NOT FOR IM USE) IV PRN (04:35)
[2019-02-05] MEDS: BLOOD SUGAR DIAGNOSTIC STRIP TEST SCH ×3 (06:35→17:38)
[2019-02-05] MEDS: INSULIN LISPRO 100 UNITS/ML SUBCUT SCH ×3 (06:35→17:20)
[2019-02-05 06:36] LABS: BASOPHILS % 0.7 % (0.0-2.0); EOSINOPHILS % 8.9 % (0.0-5.0); HEMATOCRIT. 29.5 % (42.0-52.0); HEMOGLOBIN. 9.8 g/dL (14.0-18.0); LYMPHOCYTES % 8.1 % (20.0-50.0); MEAN CORPUSCULAR HEMOGLOBIN 27.7 pg (28.0-32.0); MEAN CORPUSCULAR VOLUME 82.8 fL (80.0-94.0); MEAN PLATELET VOLUME 8.6 fl (7.4-10.4); MONOCYTES % 9.6 % (2.0-8.0); NEUTROPHILS % 72.7 % (40.0-76.0); PLATELET 186 x1000/uL (130-400); RED BLOOD CELL COUNT 3.56 mill/uL (4.7-6.1); RED CELL DISTRIBUTION WIDTH 16.8 % (11.6-14.6)
[2019-02-05 07:10] LABS: CHLORIDE 100 mEq/L (98-107)
[2019-02-05] MEDS: FAMOTIDINE 20MG TABLET PO SCH (08:34)
[2019-02-05] MEDS: TAMSULOSIN HCL 0.4MG SR CAPSULE PO SCH (08:35)
[2019-02-05] MEDS: FOLIC ACID 1MG TABLET PO SCH (08:35)
[2019-02-05] MEDS: ATORVASTATIN CALCIUM 40MG TABLET PO SCH (08:35)
[2019-02-05] MEDS: CHOLECALCIFEROL (D3) 1000 UNIT TABLET PO SCH (08:36)
[2019-02-05] MEDS: IPRATROPIUM/ALBUTEROL 0.5-3(2.5)MG/3ML NEB HHN SCH ×3 (09:19→16:29)
[2019-02-05] MEDS: INSULIN GLARGINE UD 100 UNITS/ML SYR SUBCUT SCH (10:46)
== END 2019-02-05 18:32 | DRG 163 ==
LOC: ER 01-27 00:07 → EDBEDREQDT 01-27 00:11 → EDBEDREQTM 01-27 00:11 → EDBEDREQ 01-27 00:11 → ENRESERV 01-27 05:43 → 8WST 01-27 06:41 → CVICU 01-31 10:12 → 3WST 02-01 14:50
PROVIDERS: ADMIT Internal Medicine; ATTEND Internal Medicine
PROC: 0W9B30Z Drainage of Left Pleural Cavity with Drainage Device, Percutaneous Approach (ICD-10-PCS; principal; 2019-01-31)
PROC: 0B5P4ZZ Destruction of Left Pleura, Percutaneous Endoscopic Approach (ICD-10-PCS; 2019-01-31)
PROC: 0BNL4ZZ Release Left Lung, Percutaneous Endoscopic Approach (ICD-10-PCS; 2019-01-31)
PROC: 3E0L4GC Introduction of Other Therapeutic Substance into Pleural Cavity, Percutaneous Endoscopic Approach (ICD-10-PCS; 2019-01-31)
PROC: 0BBP4ZZ Excision of Left Pleura, Percutaneous Endoscopic Approach (ICD-10-PCS; 2019-01-31)
PROC: 0BJ08ZZ Inspection of Tracheobronchial Tree, Via Natural or Artificial Opening Endoscopic (ICD-10-PCS; 2019-01-31)
PROC: 5A1935Z Respiratory Ventilation, Less than 24 Consecutive Hours (ICD-10-PCS; 2019-02-03)
DX: C34.12 Malignant neoplasm of upper lobe, left bronchus or lung (principal); I21.4 Non-ST elevation (NSTEMI) myocardial infarction; J96.00 Acute respiratory failure, unspecified whether with hypoxia or hypercapnia; I50.23 Acute on chronic systolic (congestive) heart failure; E43 Unspecified severe protein-calorie malnutrition; J91.0 Malignant pleural effusion; I11.0 Hypertensive heart disease with heart failure; I25.5 Ischemic cardiomyopathy; J44.9 Chronic obstructive pulmonary disease, unspecified; D64.9 Anemia, unspecified; E11.65 Type 2 diabetes mellitus with hyperglycemia; E78.5 Hyperlipidemia, unspecified; I25.10 Atherosclerotic heart disease of native coronary artery without angina pectoris; N40.0 Benign prostatic hyperplasia without lower urinary tract symptoms; I51.3 Intracardiac thrombosis, not elsewhere classified; R59.0 Localized enlarged lymph nodes; Z60.2 Problems related to living alone; Z68.21 Body mass index [BMI] 21.0-21.9, adult; Z95.810 Presence of automatic (implantable) cardiac defibrillator; I25.2 Old myocardial infarction; Z85.118 Personal history of other malignant neoplasm of bronchus and lung; Z87.01 Personal history of pneumonia (recurrent); Z95.5 Presence of coronary angioplasty implant and graft; Z79.899 Other long term (current) drug therapy; Z79.82 Long term (current) use of aspirin; Z87.891 Personal history of nicotine dependence; Z79.84 Long term (current) use of oral hypoglycemic drugs
CPT/HCPCS: 36415; 36600; 71045; 71250; 73706; 80048; 80305; 82375; 82550; 82553; 82805; 82962; 83880; 84145; 84484; 86850; 86900; 87070; 87075; 88108; 88305; 88312; 93005; 93306; 94640; 96374; 96375; 97116; 97162; 97166; 97530; 97535; 99291; J0330; J1650; J1815; J1940; J2250; J2270; J2405; J2710; J2765; J2930; J3010; J3490; J7030; J7042; J7070; J7620; A4315

== ENCOUNTER 2019-02-05 16:35 | Inpatient (IN) | payer MEDICARE, MEDICAID ==
[~2019-02-05] VITALS: Ht 167.6 cm; Wt 59.4 kg
[~2019-02-05 16:35] MED LIST changes: -APIX5TAB PO; +ASPI-1393 PO; +ATOR40TA70 PO; +BUDE6.9H IH; +CHOL100044 PO; +CLOP75TA4 PO; -COR3 PO; +FERR325T6 MT; -FURO-151 MT; +FURO-151 PO; +LOSA25TA26 MT; -METF-414 PO; +METF-415 PO; +SPIR25TA6 PO
[2019-02-05 20:00] VITALS: BP 100/70
[2019-02-05] MEDS ORDERED: IPRATROPIUM/ALBUTEROL 0.5-3(2.5)MG/3ML NEB HHN PRN (21:00)
[2019-02-05] MEDS ORDERED: DEXTROSE 50% WATER 50ML SYRINGE IV PRN ×2 (21:00→21:45)
[2019-02-05] MEDS: IPRATROPIUM/ALBUTEROL 0.5-3(2.5)MG/3ML NEB HHN SCH (21:45)
[2019-02-05] MEDS: INSULIN LISPRO 100 UNITS/ML SUBCUT SCH (22:00)
[2019-02-05] MEDS: BLOOD SUGAR DIAGNOSTIC STRIP TEST SCH (22:56)
[2019-02-05] MEDS: FAMOTIDINE 20MG TABLET PO SCH (23:07)
[2019-02-05] MEDS: INSULIN GLARGINE UD 100 UNITS/ML SYR SUBCUT SCH (23:08)
[2019-02-06] VITALS: BP 110/68
[2019-02-06] MEDS: BLOOD SUGAR DIAGNOSTIC STRIP TEST SCH ×4 (05:55→21:00)
[2019-02-06] MEDS: INSULIN LISPRO 100 UNITS/ML SUBCUT SCH ×4 (05:56→21:00)
[2019-02-06] MEDS ORDERED: BLOOD SUGAR DIAGNOSTIC STRIP TEST SCH (06:30)
[2019-02-06 07:09] LABS: CHLORIDE 100 mEq/L (98-107)
[2019-02-06 07:11] LABS: BASOPHILS % 0.7 % (0.0-2.0); EOSINOPHILS % 7.8 % (0.0-5.0); HEMATOCRIT. 29.9 % (42.0-52.0); HEMOGLOBIN. 9.9 g/dL (14.0-18.0); LYMPHOCYTES % 8.1 % (20.0-50.0); MEAN CORPUSCULAR HEMOGLOBIN 27.3 pg (28.0-32.0); MEAN CORPUSCULAR VOLUME 82.2 fL (80.0-94.0); MEAN PLATELET VOLUME 8.9 fl (7.4-10.4); MONOCYTES % 8.7 % (2.0-8.0); NEUTROPHILS % 74.7 % (40.0-76.0); PLATELET 192 x1000/uL (130-400); RED BLOOD CELL COUNT 3.64 mill/uL (4.7-6.1); RED CELL DISTRIBUTION WIDTH 17.4 % (11.6-14.6)
[2019-02-06] MEDS: IPRATROPIUM/ALBUTEROL 0.5-3(2.5)MG/3ML NEB HHN SCH ×4 (07:19→21:33)
[2019-02-06 08:00] VITALS: BP 118/75
[2019-02-06] MEDS ORDERED: INSULIN LISPRO 100 UNITS/ML SUBCUT SCH (09:00)
[2019-02-06] MEDS: FAMOTIDINE 20MG TABLET PO SCH ×2 (09:27→22:34)
[2019-02-06] MEDS: TAMSULOSIN HCL 0.4MG SR CAPSULE PO SCH (09:27)
[2019-02-06] MEDS: CHOLECALCIFEROL (D3) 1000 UNIT TABLET PO SCH (09:28)
[2019-02-06] MEDS: FOLIC ACID 1MG TABLET PO SCH (09:28)
[2019-02-06] MEDS: INSULIN GLARGINE UD 100 UNITS/ML SYR SUBCUT SCH ×2 (10:23→22:43)
[2019-02-06] MEDS ORDERED: LACTULOSE 20G/30ML UDC PO PRN (12:45)
[2019-02-06] MEDS: DOCUSATE SODIUM 250MG CAPSULE PO SCH (13:02)
[2019-02-06] MEDS: ACETAMINOPHEN 325MG TABLET PO PRN (16:42)
[2019-02-06 16:49] VITALS: BP 118/75
[2019-02-06 19:27] LABS: CLARITY URINE CLEAR (CLEAR); COLOR URINE DARK YELLOW (YELLOW); KETONES URINE TRACE (NEGATIVE); LEUKOCYTE ESTERASE URINE TRACE (NEGATIVE); NITRITE URINE NEGATIVE (NEGATIVE); OCCULT BLOOD URINE 2+ (NEGATIVE); PH URINE 5.5 (4.5-8.0); PROTEIN URINE 2+ (NEGATIVE); SPECIFIC GRAVITY URINE 1.025 (1.005-1.030)
[2019-02-06 20:00] VITALS: BP 101/67
[2019-02-06] MEDS: BUDESONIDE 0.5MG/2ML NEB HHN SCH (21:00)
[2019-02-06] MEDS: ATORVASTATIN CALCIUM 40MG TABLET PO SCH (22:34)
[2019-02-07] MEDS: BLOOD SUGAR DIAGNOSTIC STRIP TEST SCH ×4 (06:30→20:53)
[2019-02-07 07:59] VITALS: BP 123/85
[2019-02-07] MEDS: FAMOTIDINE 20MG TABLET PO SCH ×2 (08:45→20:50)
[2019-02-07] MEDS: DOCUSATE SODIUM 250MG CAPSULE PO SCH (08:45)
[2019-02-07] MEDS: FOLIC ACID 1MG TABLET PO SCH (08:45)
[2019-02-07] MEDS: TAMSULOSIN HCL 0.4MG SR CAPSULE PO SCH (08:46)
[2019-02-07] MEDS: CHOLECALCIFEROL (D3) 1000 UNIT TABLET PO SCH (08:46)
[2019-02-07] MEDS: INSULIN LISPRO 100 UNITS/ML SUBCUT SCH ×4 (08:47→21:01)
[2019-02-07] MEDS: INSULIN GLARGINE UD 100 UNITS/ML SYR SUBCUT SCH ×2 (11:15→22:10)
[2019-02-07] MEDS: ACETAMINOPHEN 325MG TABLET PO PRN (12:47)
[2019-02-07] MEDS: IPRATROPIUM/ALBUTEROL 0.5-3(2.5)MG/3ML NEB HHN SCH ×2 (12:57→19:47)
[2019-02-07] MEDS: BUDESONIDE 0.5MG/2ML NEB HHN SCH ×2 (12:58→19:46)
[2019-02-07 20:00] VITALS: BP 104/77
[2019-02-07] MEDS: ATORVASTATIN CALCIUM 40MG TABLET PO SCH (20:50)
[2019-02-08] MEDS: IPRATROPIUM/ALBUTEROL 0.5-3(2.5)MG/3ML NEB HHN SCH ×4 (02:13→20:33)
[2019-02-08] MEDS: HYDROCODONE/ACETAMINOPHEN 5/325MG TABLET PO PRN ×2 (03:00→16:18)
[2019-02-08] MEDS: BLOOD SUGAR DIAGNOSTIC STRIP TEST SCH ×4 (06:28→20:18)
[2019-02-08] MEDS: INSULIN LISPRO 100 UNITS/ML SUBCUT SCH ×4 (06:38→20:21)
[2019-02-08 08:00] VITALS: BP 115/76
[2019-02-08] MEDS: ENOXAPARIN 40MG/0.4ML SYR SUBCUT SCH (09:22)
[2019-02-08] MEDS: TAMSULOSIN HCL 0.4MG SR CAPSULE PO SCH (09:22)
[2019-02-08] MEDS: FOLIC ACID 1MG TABLET PO SCH (09:23)
[2019-02-08] MEDS: DOCUSATE SODIUM 250MG CAPSULE PO SCH (09:23)
[2019-02-08] MEDS: ASPIRIN 81MG TABLET PO SCH (09:23)
[2019-02-08] MEDS: CHOLECALCIFEROL (D3) 1000 UNIT TABLET PO SCH (09:23)
[2019-02-08] MEDS: FAMOTIDINE 20MG TABLET PO SCH ×2 (09:23→20:15)
[2019-02-08] MEDS: BUDESONIDE 0.5MG/2ML NEB HHN SCH ×2 (10:28→20:33)
[2019-02-08] MEDS: INSULIN GLARGINE UD 100 UNITS/ML SYR SUBCUT SCH ×2 (11:21→20:33)
[2019-02-08 20:00] VITALS: BP 103/75
[2019-02-08] MEDS: ATORVASTATIN CALCIUM 40MG TABLET PO SCH (20:15)
[2019-02-08] MEDS: ZOLPIDEM TARTRATE 5MG TABLET PO PRN (21:26)
[2019-02-09] MEDS: IPRATROPIUM/ALBUTEROL 0.5-3(2.5)MG/3ML NEB HHN SCH ×4 (02:29→21:18)
[2019-02-09] MEDS: BLOOD SUGAR DIAGNOSTIC STRIP TEST SCH ×4 (06:21→21:57)
[2019-02-09] MEDS: INSULIN LISPRO 100 UNITS/ML SUBCUT SCH ×4 (06:22→21:00)
[2019-02-09 08:00] VITALS: BP 111/73
[2019-02-09] MEDS: BUDESONIDE 0.5MG/2ML NEB HHN SCH ×2 (09:08→21:18)
[2019-02-09] MEDS: FAMOTIDINE 20MG TABLET PO SCH ×2 (09:44→20:42)
[2019-02-09] MEDS: DOCUSATE SODIUM 250MG CAPSULE PO SCH (09:44)
[2019-02-09] MEDS: FOLIC ACID 1MG TABLET PO SCH (09:44)
[2019-02-09] MEDS: TAMSULOSIN HCL 0.4MG SR CAPSULE PO SCH (09:45)
[2019-02-09] MEDS: ASPIRIN 81MG TABLET PO SCH (09:46)
[2019-02-09] MEDS: ENOXAPARIN 40MG/0.4ML SYR SUBCUT SCH (09:46)
[2019-02-09] MEDS: CHOLECALCIFEROL (D3) 1000 UNIT TABLET PO SCH (09:51)
[2019-02-09] MEDS: ACETAMINOPHEN 325MG TABLET PO PRN (10:19)
[2019-02-09] MEDS: INSULIN GLARGINE UD 100 UNITS/ML SYR SUBCUT SCH (10:25)
[2019-02-09] MEDS: HYDROCODONE/ACETAMINOPHEN 5/325MG TABLET PO PRN (19:54)
[2019-02-09 20:00] VITALS: BP 101/69
[2019-02-09] MEDS: ATORVASTATIN CALCIUM 40MG TABLET PO SCH (20:42)
[2019-02-09] MEDS: ZOLPIDEM TARTRATE 5MG TABLET PO PRN (22:27)
[2019-02-10] MEDS: IPRATROPIUM/ALBUTEROL 0.5-3(2.5)MG/3ML NEB HHN SCH ×4 (01:03→21:13)
[2019-02-10] MEDS: BLOOD SUGAR DIAGNOSTIC STRIP TEST SCH ×4 (06:30→20:57)
[2019-02-10] MEDS: INSULIN LISPRO 100 UNITS/ML SUBCUT SCH ×4 (06:30→20:58)
[2019-02-10 08:00] VITALS: BP 107/74
[2019-02-10] MEDS: CHOLECALCIFEROL (D3) 1000 UNIT TABLET PO SCH (09:06)
[2019-02-10] MEDS: FAMOTIDINE 20MG TABLET PO SCH ×2 (09:06→20:57)
[2019-02-10] MEDS: ENOXAPARIN 40MG/0.4ML SYR SUBCUT SCH (09:07)
[2019-02-10] MEDS: DOCUSATE SODIUM 250MG CAPSULE PO SCH (09:08)
[2019-02-10] MEDS: FOLIC ACID 1MG TABLET PO SCH (09:08)
[2019-02-10] MEDS: ASPIRIN 81MG TABLET PO SCH (09:09)
[2019-02-10] MEDS: TAMSULOSIN HCL 0.4MG SR CAPSULE PO SCH (09:09)
[2019-02-10] MEDS: INSULIN GLARGINE UD 100 UNITS/ML SYR SUBCUT SCH (09:20)
[2019-02-10] MEDS: HYDROCODONE/ACETAMINOPHEN 5/325MG TABLET PO PRN ×2 (10:10→15:23)
[2019-02-10] MEDS ORDERED: NA PHOS,M-B/NA PHOS,DI-BA ENEMA 118ML PR PRN (17:15)
[2019-02-10] MEDS: ACETAMINOPHEN 325MG TABLET PO PRN (17:19)
[2019-02-10 20:00] VITALS: BP 103/72
[2019-02-10] MEDS: ATORVASTATIN CALCIUM 40MG TABLET PO SCH (20:57)
[2019-02-10] MEDS: ZOLPIDEM TARTRATE 5MG TABLET PO PRN ×2 (23:40→23:42)
[2019-02-11] MEDS: IPRATROPIUM/ALBUTEROL 0.5-3(2.5)MG/3ML NEB HHN SCH ×4 (02:21→19:46)
[2019-02-11] MEDS: BLOOD SUGAR DIAGNOSTIC STRIP TEST SCH ×4 (06:35→20:53)
[2019-02-11 07:57] VITALS: BP 105/74
[2019-02-11] MEDS: CHOLECALCIFEROL (D3) 1000 UNIT TABLET PO SCH (08:51)
[2019-02-11] MEDS: TAMSULOSIN HCL 0.4MG SR CAPSULE PO SCH (08:52)
[2019-02-11] MEDS: FAMOTIDINE 20MG TABLET PO SCH ×2 (08:52→20:53)
[2019-02-11] MEDS: ACETAMINOPHEN 325MG TABLET PO PRN (08:52)
[2019-02-11] MEDS: FOLIC ACID 1MG TABLET PO SCH (08:52)
[2019-02-11] MEDS: DOCUSATE SODIUM 250MG CAPSULE PO SCH (08:52)
[2019-02-11] MEDS: ASPIRIN 81MG TABLET PO SCH (08:52)
[2019-02-11] MEDS: ENOXAPARIN 40MG/0.4ML SYR SUBCUT SCH (08:59)
[2019-02-11] MEDS: INSULIN LISPRO 100 UNITS/ML SUBCUT SCH ×4 (09:00→20:53)
[2019-02-11] MEDS: INSULIN GLARGINE UD 100 UNITS/ML SYR SUBCUT SCH (10:25)
[2019-02-11] MEDS: HYDROCODONE/ACETAMINOPHEN 10/325MG TABLET PO PRN (14:14)
[2019-02-11] MEDS: BISACODYL 5MG TABLET PO PRN (17:59)
[2019-02-11 20:05] VITALS: BP 113/83
[2019-02-11] MEDS: ATORVASTATIN CALCIUM 40MG TABLET PO SCH (20:53)
[2019-02-11] MEDS: ZOLPIDEM TARTRATE 5MG TABLET PO PRN (22:40)
[2019-02-12] MEDS: IPRATROPIUM/ALBUTEROL 0.5-3(2.5)MG/3ML NEB HHN SCH ×4 (02:17→21:39)
[2019-02-12] MEDS: BLOOD SUGAR DIAGNOSTIC STRIP TEST SCH ×6 (06:30→21:00)
[2019-02-12 07:39] VITALS: BP 115/73
[2019-02-12] MEDS: CHOLECALCIFEROL (D3) 1000 UNIT TABLET PO SCH (08:50)
[2019-02-12] MEDS: FOLIC ACID 1MG TABLET PO SCH (08:51)
[2019-02-12] MEDS: ENOXAPARIN 40MG/0.4ML SYR SUBCUT SCH (08:51)
[2019-02-12] MEDS: INSULIN LISPRO 100 UNITS/ML SUBCUT SCH ×4 (08:51→20:46)
[2019-02-12] MEDS: DOCUSATE SODIUM 250MG CAPSULE PO SCH (08:51)
[2019-02-12] MEDS: ASPIRIN 81MG TABLET PO SCH (08:51)
[2019-02-12] MEDS: FAMOTIDINE 20MG TABLET PO SCH ×2 (08:51→20:40)
[2019-02-12] MEDS: TAMSULOSIN HCL 0.4MG SR CAPSULE PO SCH (08:51)
[2019-02-12] MEDS: HYDROCODONE/ACETAMINOPHEN 5/325MG TABLET PO PRN ×2 (09:03→20:41)
[2019-02-12] MEDS: INSULIN GLARGINE UD 100 UNITS/ML SYR SUBCUT SCH (11:22)
[2019-02-12] MEDS ORDERED: DEXTROSE 50% WATER 50ML SYRINGE IV PRN (15:15)
[2019-02-12 20:11] VITALS: BP 101/71
[2019-02-12] MEDS: ATORVASTATIN CALCIUM 40MG TABLET PO SCH (20:40)
[2019-02-12] MEDS: ZOLPIDEM TARTRATE 5MG TABLET PO PRN (23:07)
[2019-02-13] MEDS: IPRATROPIUM/ALBUTEROL 0.5-3(2.5)MG/3ML NEB HHN SCH ×3 (03:08→21:27)
[2019-02-13] MEDS: BLOOD SUGAR DIAGNOSTIC STRIP TEST SCH ×8 (06:30→20:58)
[2019-02-13 08:00] VITALS: BP 109/73
[2019-02-13] MEDS: FAMOTIDINE 20MG TABLET PO SCH ×2 (08:19→20:58)
[2019-02-13] MEDS: ASPIRIN 81MG TABLET PO SCH (08:19)
[2019-02-13] MEDS: DOCUSATE SODIUM 250MG CAPSULE PO SCH (08:19)
[2019-02-13] MEDS: CHOLECALCIFEROL (D3) 1000 UNIT TABLET PO SCH (08:20)
[2019-02-13] MEDS: ENOXAPARIN 40MG/0.4ML SYR SUBCUT SCH (08:20)
[2019-02-13] MEDS: TAMSULOSIN HCL 0.4MG SR CAPSULE PO SCH (08:21)
[2019-02-13] MEDS: INSULIN LISPRO 100 UNITS/ML SUBCUT SCH ×4 (08:22→20:59)
[2019-02-13] MEDS: FOLIC ACID 1MG TABLET PO SCH (08:22)
[2019-02-13] MEDS ORDERED: LACTULOSE 20G/30ML UDC PO NR (11:15)
[2019-02-13] MEDS: HYDROCODONE/ACETAMINOPHEN 5/325MG TABLET PO PRN (16:32)
[2019-02-13 20:00] VITALS: BP 110/76
[2019-02-13] MEDS: ATORVASTATIN CALCIUM 40MG TABLET PO SCH (20:58)
[2019-02-13] MEDS: ZOLPIDEM TARTRATE 5MG TABLET PO PRN (21:02)
[2019-02-14] MEDS: IPRATROPIUM/ALBUTEROL 0.5-3(2.5)MG/3ML NEB HHN SCH ×2 (01:22→19:53)
[2019-02-14] MEDS: INSULIN LISPRO 100 UNITS/ML SUBCUT SCH ×4 (06:22→21:34)
[2019-02-14] MEDS: BLOOD SUGAR DIAGNOSTIC STRIP TEST SCH ×5 (06:22→21:23)
[2019-02-14 07:00] VITALS: BP 122/85
[2019-02-14] MEDS: HYDROCODONE/ACETAMINOPHEN 10/325MG TABLET PO PRN (07:30)
[2019-02-14] MEDS: ENOXAPARIN 40MG/0.4ML SYR SUBCUT SCH (09:13)
[2019-02-14] MEDS: FAMOTIDINE 20MG TABLET PO SCH ×2 (09:15→21:21)
[2019-02-14] MEDS: DOCUSATE SODIUM 250MG CAPSULE PO SCH (09:15)
[2019-02-14] MEDS: CHOLECALCIFEROL (D3) 1000 UNIT TABLET PO SCH (09:15)
[2019-02-14] MEDS: FOLIC ACID 1MG TABLET PO SCH (09:16)
[2019-02-14] MEDS: ASPIRIN 81MG TABLET PO SCH (09:16)
[2019-02-14] MEDS: TAMSULOSIN HCL 0.4MG SR CAPSULE PO SCH (09:16)
[2019-02-14] MEDS: HYDROCODONE/ACETAMINOPHEN 5/325MG TABLET PO PRN (10:05)
[2019-02-14] MEDS ORDERED: HYDROCODONE/ACETAMINOPHEN 10/325MG TABLET PO PRN (18:00)
[2019-02-14 20:00] VITALS: BP 121/50
[2019-02-14] MEDS: ATORVASTATIN CALCIUM 40MG TABLET PO SCH (21:21)
[2019-02-14] MEDS: ZOLPIDEM TARTRATE 5MG TABLET PO PRN (21:28)
[2019-02-15] MEDS: IPRATROPIUM/ALBUTEROL 0.5-3(2.5)MG/3ML NEB HHN SCH ×2 (02:05→07:40)
[2019-02-15] MEDS: BLOOD SUGAR DIAGNOSTIC STRIP TEST SCH ×2 (07:00→11:09)
[2019-02-15] MEDS: INSULIN LISPRO 100 UNITS/ML SUBCUT SCH ×2 (07:02→12:11)
[2019-02-15 08:00] VITALS: BP 107/73
[2019-02-15] MEDS: ENOXAPARIN 40MG/0.4ML SYR SUBCUT SCH (09:30)
[2019-02-15] MEDS: FOLIC ACID 1MG TABLET PO SCH (09:31)
[2019-02-15] MEDS: CHOLECALCIFEROL (D3) 1000 UNIT TABLET PO SCH (09:31)
[2019-02-15] MEDS: FAMOTIDINE 20MG TABLET PO SCH (09:31)
[2019-02-15 09:32] LABS: BASOPHILS % 0.6 % (0.0-2.0); EOSINOPHILS % 2.5 % (0.0-5.0); HEMATOCRIT. 29.2 % (42.0-52.0); HEMOGLOBIN. 9.7 g/dL (14.0-18.0); MEAN CORPUSCULAR HEMOGLOBIN 27.7 pg (28.0-32.0); MEAN CORPUSCULAR VOLUME 83.4 fL (80.0-94.0); MEAN PLATELET VOLUME 8.8 fl (7.4-10.4); MONOCYTES % 9.5 % (2.0-8.0); NEUTROPHILS % 79.4 % (40.0-76.0); PLATELET 331 x1000/uL (130-400); RED CELL DISTRIBUTION WIDTH 17.6 % (11.6-14.6)
[2019-02-15] MEDS: TAMSULOSIN HCL 0.4MG SR CAPSULE PO SCH (09:32)
[2019-02-15] MEDS: BISACODYL 5MG TABLET PO PRN (09:33)
[2019-02-15] MEDS: DOCUSATE SODIUM 250MG CAPSULE PO SCH (09:34)
[2019-02-15] MEDS: ASPIRIN 81MG TABLET PO SCH (09:34)
[2019-02-15 09:36] LABS: CHLORIDE 100 mEq/L (98-107)
[2019-02-15 13:05] VITALS: BP 110/72
== END 2019-02-15 15:59 | DRG 189 ==
PROVIDERS: ADMIT Physical Medicine & Rehabilitation Spinal Cord Injury Medicine; ATTEND Internal Medicine
DX: J96.00 Acute respiratory failure, unspecified whether with hypoxia or hypercapnia (principal); I50.23 Acute on chronic systolic (congestive) heart failure; E43 Unspecified severe protein-calorie malnutrition; C34.90 Malignant neoplasm of unspecified part of unspecified bronchus or lung; I25.10 Atherosclerotic heart disease of native coronary artery without angina pectoris; J44.9 Chronic obstructive pulmonary disease, unspecified; D64.9 Anemia, unspecified; E55.9 Vitamin D deficiency, unspecified; E78.5 Hyperlipidemia, unspecified; N40.1 Benign prostatic hyperplasia with lower urinary tract symptoms; F06.31 Mood disorder due to known physiological condition with depressive features; G47.00 Insomnia, unspecified; R33.8 Other retention of urine; I11.0 Hypertensive heart disease with heart failure; E11.9 Type 2 diabetes mellitus without complications; I25.5 Ischemic cardiomyopathy; Z95.5 Presence of coronary angioplasty implant and graft; Z95.810 Presence of automatic (implantable) cardiac defibrillator; Z79.02 Long term (current) use of antithrombotics/antiplatelets; Z79.51 Long term (current) use of inhaled steroids; Z87.891 Personal history of nicotine dependence; Z95.0 Presence of cardiac pacemaker; Z79.84 Long term (current) use of oral hypoglycemic drugs; Z79.899 Other long term (current) drug therapy; I25.2 Old myocardial infarction
CPT/HCPCS: 36415; 80048; 82962; 84134; 92523; 92610; 93970; 94640; 97110; 97116; 97162; 97167; 97530; 97535; A6261; C1893; G0515; J1650; J1815; J7620; J7626; A5200

== ENCOUNTER 2019-03-19 06:05 | Inpatient (IN) | payer MEDICARE, MEDICAID ==
[2019-03-19] VITALS (44 sets, daily range): BP systolic 86–137; BP diastolic 41–86
[~2019-03-19] VITALS: Ht 167.6 cm; Wt 88.1 kg
[2019-03-19] MEDS ORDERED: METHYLPREDNISOLONE SOD SUCC 125 MG/2 ML VIAL IV STA (06:18)
[2019-03-19] MEDS ORDERED: NITROGLYCERIN OINT 1GM/INCH UDPKT TD ONE ×2 (06:30→06:32)
[2019-03-19] MEDS ORDERED: FUROSEMIDE 40MG/4ML VIAL IV ONE (06:30)
[2019-03-19] MEDS ORDERED: IPRATROPIUM/ALBUTEROL 0.5-3(2.5)MG/3ML NEB HHN ONE (06:30)
[2019-03-19 06:38] LABS: HEMATOCRIT. 38.9 % (42.0-52.0); HEMOGLOBIN. 12.6 g/dL (14.0-18.0); MEAN CORPUSCULAR HEMOGLOBIN 26.6 pg (28.0-32.0); MEAN CORPUSCULAR VOLUME 81.8 fL (80.0-94.0); RED BLOOD CELL COUNT 4.75 mill/uL (4.7-6.1)
[2019-03-19 06:45] LABS: CHLORIDE 102 mEq/L (98-107)
[2019-03-19 07:08] LABS: NUCLEATED RED BLOOD CELLS 1 /100 WBC; PLATELET ESTIMATE DECREASED
[2019-03-19 07:11] LABS: PLATELET 60 x1000/uL (130-400)
[2019-03-19 08:09] LABS: CLARITY URINE CLOUDY (CLEAR); COLOR URINE YELLOW (YELLOW); KETONES URINE NEGATIVE (NEGATIVE); PROTEIN URINE NEGATIVE (NEGATIVE); SPECIFIC GRAVITY URINE 1.009 (1.005-1.030)
[2019-03-19 08:10] LABS: LEUKOCYTE ESTERASE URINE 1+ (NEGATIVE); NITRITE URINE NEGATIVE (NEGATIVE); OCCULT BLOOD URINE 1+ (NEGATIVE); UROBILINOGEN URINE 0.2 E.U./dL (0.2-1.0)
[2019-03-19] MEDS ORDERED: AZITHROMYCIN 500 MG in DEXT 5% WATER 250 ML IV ONE (08:15)
[2019-03-19] MEDS ORDERED: CEFTRIAXONE 1 G PREMIX 50 ML IV ONE (08:15)
[2019-03-19] MEDS ORDERED: SODIUM CHLORIDE 0.9% 1000ML BAG (SEPSIS BOLUS) IV ONE (08:15)
[2019-03-19 08:28] LABS: BG BASE EXCESS -1.5 mmol/L (-2.0-2.0); BG BILEVEL POS AIRWAY PRESSURE 15/5; BG CARBOXYHEMOGLOBIN 0.3 % (0.5-1.5); BG DEOXYHEMOGLOBIN 1.2 % (0.0-5.0); BG FRACTION INSPIRED OXYGEN 40; BG HCO3 ACT 22.9 mmol/L (22.0-26.0); BG METHEMOGLOBIN 0.4 % (0.0-1.5); BG OXYGEN SATURATION 98.8 % (92.0-98.5); BG OXYHEMOGLOBIN 98.1 % (94.0-97.0); BG PCO2 37.5 mmHg (35.0-45.0); BG PH 7.403 (7.350-7.450); BG PO2 163.2 mmHg (75.0-100.0); BG SAMPLE SITE RIGHT RADIAL; BG TOTAL HEMOGLOBIN 12.3 g/dL (12.0-18.0); BG VENT MODE MASK - BIPAP; BG VENT RATE 16 set
[2019-03-19 09:48] LABS: INR 2.5; PARTIAL THROMBOPLASTIN TIME 38.9 sec (23.4-31.0)
[2019-03-19 09:59] LABS: PROTHROMBIN TIME 24.9 sec (9.6-11.0)
[2019-03-19] MEDS ORDERED: ONDANSETRON HCL 4MG/2ML INJ IV PRN (10:45)
[2019-03-19] MEDS ORDERED: FUROSEMIDE 40MG/4ML VIAL IVP SCH ×2 (11:30→20:30)
[2019-03-19] MEDS: BUDESONIDE 0.5MG/2ML NEB HHN SCH (12:11)
[2019-03-19] MEDS: IPRATROPIUM BROMIDE (0.02%) 0.5MG/2.5ML NEB HHN SCH ×3 (12:12→20:56)
[2019-03-19] MEDS ORDERED: SODIUM CHLORIDE 0.9% 1,000 ML IV SCH (12:15)
[2019-03-19] MEDS: BLOOD SUGAR DIAGNOSTIC STRIP TEST SCH ×3 (12:55→20:03)
[2019-03-19] MEDS: CEFEPIME 1,000 MG in DEXTROSE 5% WATER 50 ML IV SCH (13:25)
[2019-03-19] MEDS: METHYLPREDNISOLONE SOD SUCC 40 MG/ML VIAL IV SCH ×2 (13:26→21:25)
[2019-03-19] MEDS: INSULIN LISPRO 100 UNITS/ML SUBCUT SCH ×3 (13:43→20:07)
[2019-03-19] MEDS ORDERED: VANCOMYCIN 1250MG in DEXTROSE 5% WATER 250ML IV SCH (14:00)
[2019-03-19 14:11] LABS: *BARBITURATES SCREEN URINE NEGATIVE (NEGATIVE); *BENZODIAZEPINES SCREEN URINE NEGATIVE (NEGATIVE); *COCAINE SCREEN URINE NEGATIVE (NEGATIVE); METHADONE URINE SCREEN NEGATIVE (NEGATIVE); OPIATES URINE SCREEN NEGATIVE (NEGATIVE); PHENCYCLIDINE URINE SCREEN NEGATIVE (NEGATIVE)
[2019-03-19 14:12] LABS: CANNABINOID URINE SCREEN NEGATIVE (NEGATIVE)
[2019-03-19 14:15] LABS: *AMPHETAMINES SCREEN URINE NEGATIVE (NEGATIVE)
[2019-03-19] MEDS ORDERED: FUROSEMIDE 40MG/4ML VIAL IVP NR (14:15)
[2019-03-19 14:32] LABS: HEPATITIS B SURFACE ANTIGEN NEGATIVE
[2019-03-19] MEDS: ALBUMIN HUMAN 25GM/100ML (25%) IV SCH ×2 (14:36→20:06)
[2019-03-19 15:02] LABS: HEPATITIS A AB IGM NEGATIVE (NEGATIVE)
[2019-03-19 16:09] LABS: BG BASE EXCESS -2.8 mmol/L (-2.0-2.0); BG BILEVEL POS AIRWAY PRESSURE 15/5; BG CARBOXYHEMOGLOBIN 0.4 % (0.5-1.5); BG DEOXYHEMOGLOBIN 4.3 % (0.0-5.0); BG HCO3 ACT 20.4 mmol/L (22.0-26.0); BG METHEMOGLOBIN 0.3 % (0.0-1.5); BG OXYGEN SATURATION 95.7 % (92.0-98.5); BG PCO2 30.6 mmHg (35.0-45.0); BG PH 7.441 (7.350-7.450); BG PO2 83.5 mmHg (75.0-100.0); BG SAMPLE SITE RIGHT BRACHIAL; BG TOTAL HEMOGLOBIN 12.4 g/dL (12.0-18.0); BG VENT MODE MASK - BIPAP; BG VENT RATE 16 set
[2019-03-19] MEDS ORDERED: VECURONIUM BROMIDE 10 MG/VIAL IV ONE (16:19)
[2019-03-19] MEDS ORDERED: ETOMIDATE 2MG/ML 10ML VIAL IV ONE (16:19)
[2019-03-19] MEDS: FENTANYL CITRATE/PF 500 MCG in SODIUM CHLORIDE 0.9% 40 ML IV PRN (16:53)
[2019-03-19] MEDS: MIDAZOLAM HCL 50 MG in DEXTROSE 5% WATER 40 ML IV PRN (16:54)
[2019-03-19 17:13] LABS: BG BASE EXCESS -3.7 mmol/L (-2.0-2.0); BG CARBOXYHEMOGLOBIN 0.8 % (0.5-1.5); BG DEOXYHEMOGLOBIN 8.6 % (0.0-5.0); BG HCO3 ACT 25.2 mmol/L (22.0-26.0); BG METHEMOGLOBIN 0.3 % (0.0-1.5); BG OXYGEN SATURATION 91.3 % (92.0-98.5); BG OXYHEMOGLOBIN 90.3 % (94.0-97.0); BG PCO2 64.5 mmHg (35.0-45.0); BG PO2 80.9 mmHg (75.0-100.0); BG SAMPLE SITE RIGHT BRACHIAL; BG TIDAL VOLUME(mL) 400 mL; BG TOTAL HEMOGLOBIN 12.9 g/dL (12.0-18.0); BG VENT MODE VENT - A/C; BG VENT RATE 14 set
[2019-03-19] MEDS: SPIRONOLACTONE 25MG TABLET PO SCH (18:14)
[2019-03-19 20:47] LABS: HEPATITIS B SURFACE ANTIGEN NEGATIVE
[2019-03-19 20:48] LABS: HEPATITIS A AB IGM NEGATIVE (NEGATIVE)
[2019-03-20] VITALS (89 sets, daily range): BP systolic 84–116; BP diastolic 55–79
[2019-03-20] MEDS: BLOOD SUGAR DIAGNOSTIC STRIP TEST SCH ×4 (00:10→18:30)
[2019-03-20] MEDS: DEXTROSE 50% WATER 50ML SYRINGE IV PRN ×2 (00:12→05:32)
[2019-03-20] MEDS: METRONIDAZOLE 500 MG PREMIX 100 ML IV SCH ×3 (00:12→16:21)
[2019-03-20] MEDS: IPRATROPIUM BROMIDE (0.02%) 0.5MG/2.5ML NEB HHN SCH ×6 (00:43→20:05)
[2019-03-20] MEDS: ACETYLCYSTEINE 100MG/ML 10% VIAL 4ML INH SCH ×3 (00:43→16:15)
[2019-03-20] MEDS: ALBUMIN HUMAN 25GM/100ML (25%) IV SCH ×2 (02:03→08:07)
[2019-03-20] MEDS: METHYLPREDNISOLONE SOD SUCC 40 MG/ML VIAL IV SCH ×3 (05:31→22:53)
[2019-03-20] MEDS: INSULIN LISPRO 100 UNITS/ML SUBCUT SCH ×2 (05:32)
[2019-03-20] MEDS: MIDAZOLAM HCL 50 MG in DEXTROSE 5% WATER 40 ML IV PRN (06:55)
[2019-03-20 07:44] LABS: PHOSPHORUS 3.7 mg/dL (2.5-4.9)
[2019-03-20 08:08] LABS: HEMATOCRIT. 30.7 % (42.0-52.0); HEMOGLOBIN. 10.1 g/dL (14.0-18.0); MEAN CORPUSCULAR HEMOGLOBIN 26.7 pg (28.0-32.0); MEAN CORPUSCULAR VOLUME 81.4 fL (80.0-94.0); RED BLOOD CELL COUNT 3.77 mill/uL (4.7-6.1); RED CELL DISTRIBUTION WIDTH 18.4 % (11.6-14.6)
[2019-03-20] MEDS: SPIRONOLACTONE 25MG TABLET PO SCH (08:11)
[2019-03-20 08:26] LABS: CHLORIDE 105 mEq/L (98-107)
[2019-03-20] MEDS: BUDESONIDE 0.5MG/2ML NEB HHN SCH ×2 (08:37→20:06)
[2019-03-20 09:42] LABS: BG BASE EXCESS 3.6 mmol/L (-2.0-2.0); BG CARBOXYHEMOGLOBIN 0.6 % (0.5-1.5); BG DEOXYHEMOGLOBIN 0.3 % (0.0-5.0); BG FRACTION INSPIRED OXYGEN 80; BG HCO3 ACT 27.8 mmol/L (22.0-26.0); BG METHEMOGLOBIN 0.3 % (0.0-1.5); BG OXYGEN SATURATION 99.7 % (92.0-98.5); BG OXYHEMOGLOBIN 98.8 % (94.0-97.0); BG PCO2 40.7 mmHg (35.0-45.0); BG PH 7.452 (7.350-7.450); BG PO2 252.5 mmHg (75.0-100.0); BG SAMPLE SITE RIGHT BRACHIAL; BG TIDAL VOLUME(mL) 400 mL; BG TOTAL HEMOGLOBIN 11.2 g/dL (12.0-18.0); BG VENT MODE VENT - A/C; BG VENT RATE 18 set
[2019-03-20 10:42] LABS: PLATELET ESTIMATE MARKEDLY DECREASED
[2019-03-20 10:45] LABS: MEAN PLATELET VOLUME 10.9 fl (7.4-10.4); PLATELET 37 x1000/uL (130-400)
[2019-03-20] MEDS: FENTANYL CITRATE/PF 500 MCG in SODIUM CHLORIDE 0.9% 40 ML IV PRN (11:05)
[2019-03-20] MEDS: VANCOMYCIN 1 G PREMIX 200 ML IV SCH (11:17)
[2019-03-20] MEDS: FUROSEMIDE 40MG/4ML VIAL IVP SCH (11:21)
[2019-03-20] MEDS: POTASSIUM CHLORIDE 20MEQ TABLET SR PO SCH (11:21)
[2019-03-20] MEDS: CEFEPIME 1,000 MG in DEXTROSE 5% WATER 50 ML IV SCH (13:55)
[2019-03-20] MEDS: CLOTRIMAZOLE 1% CREAM 30GM TOP SCH (20:35)
[2019-03-20] MEDS: PHENYLEPHRINE 40 MG in DEXT 5% WATER 246 ML IV PRN (21:55)
[2019-03-21] VITALS (85 sets, daily range): BP systolic 86–122; BP diastolic 55–82
[2019-03-21] MEDS: IPRATROPIUM BROMIDE (0.02%) 0.5MG/2.5ML NEB HHN SCH ×7 (00:13→23:47)
[2019-03-21] MEDS: ACETYLCYSTEINE 100MG/ML 10% VIAL 4ML INH SCH ×4 (00:13→23:48)
[2019-03-21] MEDS: BLOOD SUGAR DIAGNOSTIC STRIP TEST SCH ×4 (00:34→18:37)
[2019-03-21] MEDS: METRONIDAZOLE 500 MG PREMIX 100 ML IV SCH ×3 (01:02→16:17)
[2019-03-21] MEDS: PHENYLEPHRINE 40 MG in DEXT 5% WATER 246 ML IV PRN ×4 (03:31→21:36)
[2019-03-21] MEDS: METHYLPREDNISOLONE SOD SUCC 40 MG/ML VIAL IV SCH ×3 (06:02→21:38)
[2019-03-21] MEDS: VANCOMYCIN 1 G PREMIX 200 ML IV SCH (06:03)
[2019-03-21 06:57] LABS: BG CARBOXYHEMOGLOBIN 1.2 % (0.5-1.5); BG DEOXYHEMOGLOBIN 6.2 % (0.0-5.0); BG FRACTION INSPIRED OXYGEN 40; BG HCO3 ACT 24.1 mmol/L (22.0-26.0); BG METHEMOGLOBIN 0.5 % (0.0-1.5); BG OXYGEN SATURATION 93.7 % (92.0-98.5); BG OXYHEMOGLOBIN 92.1 % (94.0-97.0); BG PCO2 41.5 mmHg (35.0-45.0); BG PH 7.382 (7.350-7.450); BG PO2 73.9 mmHg (75.0-100.0); BG SAMPLE SITE RIGHT BRACHIAL; BG TIDAL VOLUME(mL) 400 mL; BG TOTAL HEMOGLOBIN 15.6 g/dL (12.0-18.0); BG VENT MODE VENT - A/C; BG VENT RATE 16 set
[2019-03-21 08:07] LABS: HIV SCREEN 4G Non Reactive (Non Reactive)
[2019-03-21] MEDS: POTASSIUM CHLORIDE 20MEQ TABLET SR PO SCH (08:37)
[2019-03-21] MEDS: FUROSEMIDE 40MG/4ML VIAL IVP SCH (08:40)
[2019-03-21] MEDS: SPIRONOLACTONE 25MG TABLET PO SCH (08:40)
[2019-03-21] MEDS: CLOTRIMAZOLE 1% CREAM 30GM TOP SCH (08:41)
[2019-03-21] MEDS: BUDESONIDE 0.5MG/2ML NEB HHN SCH ×2 (08:47→19:58)
[2019-03-21] MEDS: FENTANYL CITRATE/PF 500 MCG in SODIUM CHLORIDE 0.9% 40 ML IV PRN ×2 (09:34→19:08)
[2019-03-21 09:55] LABS: HEMATOCRIT. 46.4 % (42.0-52.0); HEMOGLOBIN. 14.9 g/dL (14.0-18.0); MEAN CORPUSCULAR HEMOGLOBIN 26.7 pg (28.0-32.0); MEAN CORPUSCULAR VOLUME 83.2 fL (80.0-94.0); MEAN PLATELET VOLUME 12.4 fl (7.4-10.4); PLATELET 65 x1000/uL (130-400); RED BLOOD CELL COUNT 5.58 mill/uL (4.7-6.1); RED CELL DISTRIBUTION WIDTH 19.3 % (11.6-14.6)
[2019-03-21 10:37] LABS: NUCLEATED RED BLOOD CELLS 1 /100 WBC; PLATELET ESTIMATE DECREASED
[2019-03-21] MEDS: INSULIN LISPRO 100 UNITS/ML SUBCUT SCH ×2 (13:11→18:38)
[2019-03-21] MEDS: CEFEPIME 1,000 MG in DEXTROSE 5% WATER 50 ML IV SCH (14:03)
[2019-03-22] VITALS (100 sets, daily range): BP systolic 91–128; BP diastolic 62–92
[2019-03-22] MEDS: METRONIDAZOLE 500 MG PREMIX 100 ML IV SCH ×4 (00:44→23:46)
[2019-03-22] MEDS: VANCOMYCIN 1 G PREMIX 200 ML IV SCH (00:44)
[2019-03-22] MEDS: BLOOD SUGAR DIAGNOSTIC STRIP TEST SCH ×5 (00:57→23:18)
[2019-03-22] MEDS: INSULIN LISPRO 100 UNITS/ML SUBCUT SCH ×5 (01:08→23:48)
[2019-03-22] MEDS: PHENYLEPHRINE 40 MG in DEXT 5% WATER 246 ML IV PRN (03:45)
[2019-03-22] MEDS: IPRATROPIUM BROMIDE (0.02%) 0.5MG/2.5ML NEB HHN SCH ×5 (04:04→20:32)
[2019-03-22] MEDS: METHYLPREDNISOLONE SOD SUCC 40 MG/ML VIAL IV SCH (05:45)
[2019-03-22] MEDS: FENTANYL CITRATE/PF 500 MCG in SODIUM CHLORIDE 0.9% 40 ML IV PRN ×2 (06:29→21:05)
[2019-03-22 08:17] LABS: BG BASE EXCESS -2.2 mmol/L (-2.0-2.0); BG DEOXYHEMOGLOBIN 5.8 % (0.0-5.0); BG FRACTION INSPIRED OXYGEN 40; BG HCO3 ACT 24.7 mmol/L (22.0-26.0); BG METHEMOGLOBIN 0.3 % (0.0-1.5); BG OXYGEN SATURATION 94.1 % (92.0-98.5); BG OXYHEMOGLOBIN 92.9 % (94.0-97.0); BG PCO2 50.4 mmHg (35.0-45.0); BG PH 7.308 (7.350-7.450); BG PO2 78.2 mmHg (75.0-100.0); BG SAMPLE SITE RIGHT RADIAL; BG TIDAL VOLUME(mL) 400 mL; BG TOTAL HEMOGLOBIN 14.4 g/dL (12.0-18.0); BG VENT RATE 16 set
[2019-03-22 09:02] LABS: HEMATOCRIT. 40.3 % (42.0-52.0); HEMOGLOBIN. 12.9 g/dL (14.0-18.0); INR 2.6; MEAN CORPUSCULAR HEMOGLOBIN 26.2 pg (28.0-32.0); MEAN CORPUSCULAR VOLUME 81.7 fL (80.0-94.0); MEAN PLATELET VOLUME 10.3 fl (7.4-10.4); PLATELET 67 x1000/uL (130-400); PROTHROMBIN TIME 25.4 sec (9.6-11.0); RED BLOOD CELL COUNT 4.93 mill/uL (4.7-6.1)
[2019-03-22 09:04] LABS: CHLORIDE 96 mEq/L (98-107)
[2019-03-22] MEDS: BUDESONIDE 0.5MG/2ML NEB HHN SCH ×2 (09:10→20:32)
[2019-03-22] MEDS: ACETYLCYSTEINE 100MG/ML 10% VIAL 4ML INH SCH ×2 (09:10→16:19)
[2019-03-22 09:11] LABS: PHOSPHORUS 5.5 mg/dL (2.5-4.9)
[2019-03-22 09:20] LABS: PLATELET ESTIMATE DECREASED
[2019-03-22] MEDS: CLOTRIMAZOLE 1% CREAM 30GM TOP SCH (09:21)
[2019-03-22] MEDS: PHENYLEPHRINE 80 MG in DEXT 5% WATER 492 ML IV PRN ×2 (09:41→22:04)
[2019-03-22 10:29] LABS: BG VENT MODE VENT-A/C
[2019-03-22] MEDS: CEFEPIME 1,000 MG in DEXTROSE 5% WATER 50 ML IV SCH (14:14)
[2019-03-22 21:02] LABS: PROTHROMBIN TIME 20.2 sec (9.6-11.0)
[2019-03-23] VITALS (88 sets, daily range): BP systolic 105–146; BP diastolic 70–97
[2019-03-23] MEDS: IPRATROPIUM BROMIDE (0.02%) 0.5MG/2.5ML NEB HHN SCH ×7 (00:33→20:17)
[2019-03-23] MEDS: ACETYLCYSTEINE 100MG/ML 10% VIAL 4ML INH SCH ×3 (00:33→16:40)
[2019-03-23] MEDS: FENTANYL CITRATE/PF 500 MCG in SODIUM CHLORIDE 0.9% 40 ML IV PRN ×4 (03:20→20:42)
[2019-03-23] MEDS: BLOOD SUGAR DIAGNOSTIC STRIP TEST SCH ×3 (06:38→18:41)
[2019-03-23] MEDS: INSULIN LISPRO 100 UNITS/ML SUBCUT SCH ×3 (06:48→18:44)
[2019-03-23 07:01] LABS: INR 2.1; PARTIAL THROMBOPLASTIN TIME 43.6 sec (23.4-31.0); PROTHROMBIN TIME 21.3 sec (9.6-11.0)
[2019-03-23 07:06] LABS: HEMOGLOBIN. 11.8 g/dL (14.0-18.0); MEAN CORPUSCULAR HEMOGLOBIN 26.1 pg (28.0-32.0); MEAN CORPUSCULAR VOLUME 81.6 fL (80.0-94.0); MEAN PLATELET VOLUME 9.3 fl (7.4-10.4); PLATELET 89 x1000/uL (130-400); RED BLOOD CELL COUNT 4.53 mill/uL (4.7-6.1); RED CELL DISTRIBUTION WIDTH 19.3 % (11.6-14.6)
[2019-03-23] MEDS: BUDESONIDE 0.5MG/2ML NEB HHN SCH ×2 (08:07→20:17)
[2019-03-23] MEDS: METRONIDAZOLE 500 MG PREMIX 100 ML IV SCH ×2 (08:26→15:56)
[2019-03-23] MEDS: METHYLPREDNISOLONE SOD SUCC 40 MG/ML VIAL IV SCH (08:26)
[2019-03-23] MEDS: CLOTRIMAZOLE 1% CREAM 30GM TOP SCH (08:27)
[2019-03-23 08:47] LABS: BG DEOXYHEMOGLOBIN 9.1 % (0.0-5.0); BG FRACTION INSPIRED OXYGEN 40; BG HCO3 ACT 23.9 mmol/L (22.0-26.0); BG METHEMOGLOBIN 0.4 % (0.0-1.5); BG OXYGEN SATURATION 90.8 % (92.0-98.5); BG OXYHEMOGLOBIN 89.5 % (94.0-97.0); BG PCO2 45.3 mmHg (35.0-45.0); BG PH 7.341 (7.350-7.450); BG PO2 65.5 mmHg (75.0-100.0); BG SAMPLE SITE LEFT RADIAL; BG TIDAL VOLUME(mL) 400 mL; BG VENT MODE VENT - A/C; BG VENT RATE 18 set
[2019-03-23 12:01] LABS: PLATELET ESTIMATE DECREASED
[2019-03-23] MEDS: PHYTONADIONE 10MG/ML AMP SUBCUT SCH (12:59)
[2019-03-23] MEDS: CEFEPIME 1,000 MG in DEXTROSE 5% WATER 50 ML IV SCH (14:03)
[2019-03-23] MEDS: PHENYLEPHRINE 80 MG in DEXT 5% WATER 492 ML IV PRN (14:04)
[2019-03-23] MEDS: INSULIN GLARGINE UD 100 UNITS/ML SYR SUBCUT SCH (21:10)
[2019-03-24] VITALS (96 sets, daily range): BP systolic 96–143; BP diastolic 53–97
[2019-03-24] MEDS: BLOOD SUGAR DIAGNOSTIC STRIP TEST SCH ×5 (00:04→23:34)
[2019-03-24] MEDS: METRONIDAZOLE 500 MG PREMIX 100 ML IV SCH ×4 (00:04→23:34)
[2019-03-24] MEDS: INSULIN LISPRO 100 UNITS/ML SUBCUT SCH ×5 (00:16→23:45)
[2019-03-24] MEDS: ACETYLCYSTEINE 100MG/ML 10% VIAL 4ML INH SCH ×3 (00:49→15:09)
[2019-03-24] MEDS: IPRATROPIUM BROMIDE (0.02%) 0.5MG/2.5ML NEB HHN SCH ×5 (00:49→20:25)
[2019-03-24] MEDS: FENTANYL CITRATE/PF 500 MCG in SODIUM CHLORIDE 0.9% 40 ML IV PRN ×4 (03:25→18:56)
[2019-03-24 05:56] LABS: INR 2.5; PARTIAL THROMBOPLASTIN TIME 51.3 sec (23.4-31.0); PROTHROMBIN TIME 24.6 sec (9.6-11.0)
[2019-03-24 06:06] LABS: CHLORIDE 102 mEq/L (98-107)
[2019-03-24 06:17] LABS: HEMATOCRIT. 35.4 % (42.0-52.0); HEMOGLOBIN. 11.5 g/dL (14.0-18.0); MEAN CORPUSCULAR HEMOGLOBIN 26.2 pg (28.0-32.0); MEAN CORPUSCULAR VOLUME 80.3 fL (80.0-94.0); MEAN PLATELET VOLUME 11.5 fl (7.4-10.4); PLATELET 53 x1000/uL (130-400); RED CELL DISTRIBUTION WIDTH 19.1 % (11.6-14.6)
[2019-03-24 06:25] LABS: PHOSPHORUS 3.6 mg/dL (2.5-4.9)
[2019-03-24 07:53] LABS: BG BASE EXCESS 0.9 mmol/L (-2.0-2.0); BG CARBOXYHEMOGLOBIN 0.8 % (0.5-1.5); BG FRACTION INSPIRED OXYGEN 40; BG METHEMOGLOBIN 0.4 % (0.0-1.5); BG OXYHEMOGLOBIN 96.8 % (94.0-97.0); BG PCO2 43.4 mmHg (35.0-45.0); BG PH 7.395 (7.350-7.450); BG PO2 111.9 mmHg (75.0-100.0); BG SAMPLE SITE LEFT RADIAL; BG TIDAL VOLUME(mL) 400 mL; BG TOTAL HEMOGLOBIN 12.7 g/dL (12.0-18.0); BG VENT MODE VENT - A/C; BG VENT RATE 18 set
[2019-03-24] MEDS: METHYLPREDNISOLONE SOD SUCC 40 MG/ML VIAL IV SCH (08:26)
[2019-03-24] MEDS: PHYTONADIONE 10MG/ML AMP SUBCUT SCH (08:26)
[2019-03-24] MEDS: CLOTRIMAZOLE 1% CREAM 30GM TOP SCH (08:32)
[2019-03-24] MEDS: INSULIN GLARGINE UD 100 UNITS/ML SYR SUBCUT SCH ×2 (09:45→21:21)
[2019-03-24 10:32] LABS: PLATELET ESTIMATE MARKEDLY DECREASED
[2019-03-24] MEDS: BUDESONIDE 0.5MG/2ML NEB HHN SCH ×2 (11:55→20:25)
[2019-03-24] MEDS: CEFEPIME 1,000 MG in DEXTROSE 5% WATER 50 ML IV SCH (13:09)
[2019-03-25] VITALS (108 sets, daily range): BP systolic 100–132; BP diastolic 70–93
[2019-03-25] MEDS: IPRATROPIUM BROMIDE (0.02%) 0.5MG/2.5ML NEB HHN SCH ×6 (00:26→20:51)
[2019-03-25] MEDS: FENTANYL CITRATE/PF 500 MCG in SODIUM CHLORIDE 0.9% 40 ML IV PRN ×5 (00:38→23:42)
[2019-03-25 05:30] LABS: HEMATOCRIT. 35.8 % (42.0-52.0); HEMOGLOBIN. 11.8 g/dL (14.0-18.0); LYMPHOCYTES % 0.9 % (20.0-50.0); MEAN CORPUSCULAR HEMOGLOBIN 26.6 pg (28.0-32.0); MEAN CORPUSCULAR VOLUME 80.9 fL (80.0-94.0); MONOCYTES % 5.7 % (2.0-8.0); NEUTROPHILS % 93.4 % (40.0-76.0); RED BLOOD CELL COUNT 4.43 mill/uL (4.7-6.1); RED CELL DISTRIBUTION WIDTH 18.6 % (11.6-14.6)
[2019-03-25 05:38] LABS: CHLORIDE 107 mEq/L (98-107)
[2019-03-25 05:59] LABS: PHOSPHORUS 6.7 mg/dL (2.5-4.9)
[2019-03-25] MEDS: INSULIN LISPRO 100 UNITS/ML SUBCUT SCH ×4 (06:00→23:47)
[2019-03-25] MEDS: BLOOD SUGAR DIAGNOSTIC STRIP TEST SCH ×4 (06:19→23:47)
[2019-03-25 07:24] LABS: MEAN PLATELET VOLUME 10.1 fl (7.4-10.4); PLATELET 33 x1000/uL (130-400)
[2019-03-25] MEDS: BUDESONIDE 0.5MG/2ML NEB HHN SCH ×2 (08:16→20:51)
[2019-03-25 08:40] LABS: BG CARBOXYHEMOGLOBIN 0.8 % (0.5-1.5); BG DEOXYHEMOGLOBIN 1.5 % (0.0-5.0); BG FRACTION INSPIRED OXYGEN 35; BG HCO3 ACT 26.7 mmol/L (22.0-26.0); BG METHEMOGLOBIN 0.4 % (0.0-1.5); BG OXYGEN SATURATION 98.5 % (92.0-98.5); BG OXYHEMOGLOBIN 97.3 % (94.0-97.0); BG PCO2 42.2 mmHg (35.0-45.0); BG PH 7.419 (7.350-7.450); BG SAMPLE SITE RIGHT RADIAL; BG TIDAL VOLUME(mL) 400 mL; BG TOTAL HEMOGLOBIN 12.8 g/dL (12.0-18.0); BG VENT MODE VENT - A/C; BG VENT RATE 18 set
[2019-03-25] MEDS: METHYLPREDNISOLONE SOD SUCC 40 MG/ML VIAL IV SCH (09:22)
[2019-03-25] MEDS: PHYTONADIONE 10MG/ML AMP SUBCUT SCH (09:22)
[2019-03-25] MEDS: METRONIDAZOLE 500 MG PREMIX 100 ML IV SCH ×3 (09:22→23:47)
[2019-03-25] MEDS: CLOTRIMAZOLE 1% CREAM 30GM TOP SCH (09:23)
[2019-03-25] MEDS: INSULIN GLARGINE UD 100 UNITS/ML SYR SUBCUT SCH ×2 (09:24→21:34)
[2019-03-25 10:42] LABS: INR 2.4; PROTHROMBIN TIME 23.9 sec (9.6-11.0)
[2019-03-25 13:25] LABS: INR 1.6; PROTHROMBIN TIME 15.9 sec (9.6-11.0)
[2019-03-25] MEDS: CEFEPIME 1,000 MG in DEXTROSE 5% WATER 50 ML IV SCH (14:17)
[2019-03-25] MEDS ORDERED: VANCOMYCIN 500 MG PREMIX 100 ML IV SCH (15:00)
[2019-03-25] MEDS: DEXTROSE 50% WATER 50ML SYRINGE IV PRN ×2 (18:52→21:33)
[2019-03-25] MEDS: METOCLOPRAMIDE HCL 10MG/2ML VIAL IV SCH (23:47)
[2019-03-26] VITALS (98 sets, daily range): BP systolic 103–151; BP diastolic 65–109
[2019-03-26] MEDS: IPRATROPIUM BROMIDE (0.02%) 0.5MG/2.5ML NEB HHN SCH ×7 (00:21→23:40)
[2019-03-26] MEDS ORDERED: DEXT 5%/0.45% NACL 1000ML 1,000 ML IV SCH (01:00)
[2019-03-26] MEDS: DEXTROSE 50% WATER 50ML SYRINGE IV PRN ×6 (03:30→22:26)
[2019-03-26 05:28] LABS: HEMATOCRIT. 30.4 % (42.0-52.0); HEMOGLOBIN. 9.9 g/dL (14.0-18.0); MEAN CORPUSCULAR VOLUME 79.9 fL (80.0-94.0); MEAN PLATELET VOLUME 9.7 fl (7.4-10.4); PLATELET 74 x1000/uL (130-400); RED BLOOD CELL COUNT 3.81 mill/uL (4.7-6.1); RED CELL DISTRIBUTION WIDTH 19.4 % (11.6-14.6)
[2019-03-26 05:33] LABS: INR 1.6; PARTIAL THROMBOPLASTIN TIME 32.3 sec (23.4-31.0); PROTHROMBIN TIME 16.2 sec (9.6-11.0)
[2019-03-26 05:36] LABS: CHLORIDE 108 mEq/L (98-107)
[2019-03-26 05:57] LABS: PHOSPHORUS 2.2 mg/dL (2.5-4.9)
[2019-03-26] MEDS: INSULIN LISPRO 100 UNITS/ML SUBCUT SCH ×6 (06:00→23:23)
[2019-03-26] MEDS: METOCLOPRAMIDE HCL 10MG/2ML VIAL IV SCH ×4 (06:03→23:24)
[2019-03-26] MEDS: BLOOD SUGAR DIAGNOSTIC STRIP TEST SCH ×6 (06:03→23:23)
[2019-03-26] MEDS: FENTANYL CITRATE/PF 500 MCG in SODIUM CHLORIDE 0.9% 40 ML IV PRN ×3 (06:15→18:12)
[2019-03-26 07:49] LABS: BG BASE EXCESS 2.2 mmol/L (-2.0-2.0); BG CARBOXYHEMOGLOBIN 0.5 % (0.5-1.5); BG DEOXYHEMOGLOBIN 1.5 % (0.0-5.0); BG FRACTION INSPIRED OXYGEN 35; BG HCO3 ACT 26.2 mmol/L (22.0-26.0); BG METHEMOGLOBIN 0.4 % (0.0-1.5); BG OXYGEN SATURATION 98.5 % (92.0-98.5); BG OXYHEMOGLOBIN 97.6 % (94.0-97.0); BG PCO2 38.9 mmHg (35.0-45.0); BG PH 7.447 (7.350-7.450); BG PO2 130.3 mmHg (75.0-100.0); BG SAMPLE SITE RIGHT RADIAL; BG TIDAL VOLUME(mL) 400 mL; BG TOTAL HEMOGLOBIN 11.7 g/dL (12.0-18.0); BG VENT MODE VENT - A/C; BG VENT RATE 18 set
[2019-03-26] MEDS: BUDESONIDE 0.5MG/2ML NEB HHN SCH ×2 (07:50→20:21)
[2019-03-26] MEDS: PANTOPRAZOLE SODIUM 40 MG/VIAL IV SCH (08:19)
[2019-03-26] MEDS: METRONIDAZOLE 500 MG PREMIX 100 ML IV SCH ×3 (08:19→23:24)
[2019-03-26] MEDS: CLOTRIMAZOLE 1% CREAM 30GM TOP SCH (08:20)
[2019-03-26 08:22] LABS: PLATELET ESTIMATE DECREASED
[2019-03-26] MEDS: DEXTROSE 5% WATER 1,000 ML IV SCH ×2 (09:10→20:59)
[2019-03-26] MEDS: INSULIN GLARGINE UD 100 UNITS/ML SYR SUBCUT SCH ×3 (09:22→22:00)
[2019-03-26] MEDS ORDERED: POTASSIUM PHOS,M-BASIC-D-BASIC 15 MMOL in DEXT 5% WATER 245 ML IV SCH (10:00)
[2019-03-26] MEDS ORDERED: SODIUM BICARBONATE 4% (2.4MEQ) 5ML VIAL IV ONE (12:53)
[2019-03-26] MEDS ORDERED: IOHEXOL-300 100 ML BOTTLE ONE (12:56)
[2019-03-26] MEDS ORDERED: LIDOCAINE HCL 1% 20ML VIAL (Pyxis) INJ ONE (12:57)
[2019-03-26] MEDS: CEFEPIME 1,000 MG in DEXTROSE 5% WATER 50 ML IV SCH (14:41)
[2019-03-26] MEDS: QUETIAPINE FUMARATE 25MG TABLET GT SCH (20:59)
[2019-03-27] VITALS (101 sets, daily range): BP systolic 98–133; BP diastolic 52–94
[2019-03-27] MEDS: FENTANYL CITRATE/PF 500 MCG in SODIUM CHLORIDE 0.9% 40 ML IV PRN ×3 (00:38→12:55)
[2019-03-27] MEDS: BLOOD SUGAR DIAGNOSTIC STRIP TEST SCH ×6 (03:14→23:26)
[2019-03-27] MEDS: INSULIN LISPRO 100 UNITS/ML SUBCUT SCH ×6 (03:14→23:27)
[2019-03-27] MEDS: DEXTROSE 50% WATER 50ML SYRINGE IV PRN ×2 (03:17→09:40)
[2019-03-27] MEDS: IPRATROPIUM BROMIDE (0.02%) 0.5MG/2.5ML NEB HHN SCH ×4 (03:37→20:08)
[2019-03-27 05:48] LABS: PHOSPHORUS 2.1 mg/dL (2.5-4.9)
[2019-03-27 05:51] LABS: HEMATOCRIT. 28.5 % (42.0-52.0); HEMOGLOBIN. 9.3 g/dL (14.0-18.0); MEAN CORPUSCULAR HEMOGLOBIN 26.1 pg (28.0-32.0); MEAN CORPUSCULAR VOLUME 79.7 fL (80.0-94.0); PLATELET 117 x1000/uL (130-400); RED BLOOD CELL COUNT 3.58 mill/uL (4.7-6.1)
[2019-03-27 05:58] LABS: INR 1.7; PARTIAL THROMBOPLASTIN TIME 32.9 sec (23.4-31.0); PROTHROMBIN TIME 16.8 sec (9.6-11.0)
[2019-03-27] MEDS: METOCLOPRAMIDE HCL 10MG/2ML VIAL IV SCH ×4 (06:22→23:27)
[2019-03-27 07:37] LABS: PLATELET ESTIMATE SLIGHTLY DECREASED
[2019-03-27] MEDS: BUDESONIDE 0.5MG/2ML NEB HHN SCH ×2 (08:24→20:08)
[2019-03-27] MEDS: PANTOPRAZOLE SODIUM 40 MG/VIAL IV SCH (08:35)
[2019-03-27] MEDS: METRONIDAZOLE 500 MG PREMIX 100 ML IV SCH ×3 (08:39→23:27)
[2019-03-27] MEDS: CLOTRIMAZOLE 1% CREAM 30GM TOP SCH (08:40)
[2019-03-27] MEDS: QUETIAPINE FUMARATE 25MG TABLET GT SCH ×2 (09:00→20:26)
[2019-03-27] MEDS ORDERED: FUROSEMIDE 20MG/2ML VIAL IVP SCH (09:00)
[2019-03-27] MEDS ORDERED: DEXTROSE 10% WATER 500 ML IV ONE (09:00)
[2019-03-27] MEDS: INSULIN GLARGINE UD 100 UNITS/ML SYR SUBCUT SCH ×2 (10:00→22:00)
[2019-03-27] MEDS ORDERED: POTASSIUM PHOS,M-BASIC-D-BASIC 15 MMOL in DEXT 5% WATER 245 ML IV NR (10:00)
[2019-03-27] MEDS ORDERED: DEXT 10% WATER 500 ML IV ONE (10:30)
[2019-03-27] MEDS ORDERED: VANCOMYCIN 1250MG in DEXTROSE 5% WATER 250ML IV SCH (13:30)
[2019-03-27 14:43] LABS: INR 1.7; PARTIAL THROMBOPLASTIN TIME 31.3 sec (23.4-31.0); PROTHROMBIN TIME 17.3 sec (9.6-11.0)
[2019-03-27] MEDS: CEFEPIME 1,000 MG in DEXTROSE 5% WATER 50 ML IV SCH (14:48)
[2019-03-27] MEDS ORDERED: SODIUM CHLORIDE 0.9% 10ML VIAL ONE (16:32)
[2019-03-27] MEDS ORDERED: VECURONIUM BROMIDE 10 MG/VIAL IV ONE (16:32)
[2019-03-27] MEDS ORDERED: FENTANYL CITRATE/PF 50MCG/ML 5ML VIAL ONE (16:32)
[2019-03-28] VITALS (98 sets, daily range): BP systolic 79–120; BP diastolic 54–86
[2019-03-28] MEDS: IPRATROPIUM BROMIDE (0.02%) 0.5MG/2.5ML NEB HHN SCH ×6 (00:04→20:40)
[2019-03-28] MEDS: FENTANYL CITRATE/PF 500 MCG in SODIUM CHLORIDE 0.9% 40 ML IV PRN ×2 (01:33→10:59)
[2019-03-28] MEDS: BLOOD SUGAR DIAGNOSTIC STRIP TEST SCH ×5 (04:00→20:00)
[2019-03-28] MEDS: INSULIN LISPRO 100 UNITS/ML SUBCUT SCH ×5 (04:00→20:00)
[2019-03-28] MEDS: METOCLOPRAMIDE HCL 10MG/2ML VIAL IV SCH ×3 (05:57→18:30)
[2019-03-28 05:58] LABS: HEMATOCRIT. 29.6 % (42.0-52.0); HEMOGLOBIN. 9.8 g/dL (14.0-18.0); MEAN CORPUSCULAR HEMOGLOBIN 26.8 pg (28.0-32.0); MEAN CORPUSCULAR VOLUME 80.7 fL (80.0-94.0); MEAN PLATELET VOLUME 9.6 fl (7.4-10.4); PLATELET 63 x1000/uL (130-400); RED BLOOD CELL COUNT 3.67 mill/uL (4.7-6.1)
[2019-03-28 06:10] LABS: PHOSPHORUS 2.5 mg/dL (2.5-4.9)
[2019-03-28 06:55] LABS: PLATELET ESTIMATE DECREASED
[2019-03-28] MEDS: BUDESONIDE 0.5MG/2ML NEB HHN SCH ×2 (08:31→20:41)
[2019-03-28 08:33] LABS: BG CARBOXYHEMOGLOBIN 0.9 % (0.5-1.5); BG DEOXYHEMOGLOBIN 1.5 % (0.0-5.0); BG FRACTION INSPIRED OXYGEN 35; BG HCO3 ACT 23.8 mmol/L (22.0-26.0); BG METHEMOGLOBIN 0.3 % (0.0-1.5); BG OXYGEN SATURATION 98.5 % (92.0-98.5); BG OXYHEMOGLOBIN 97.3 % (94.0-97.0); BG PCO2 31.7 mmHg (35.0-45.0); BG PH 7.493 (7.350-7.450); BG PO2 126.1 mmHg (75.0-100.0); BG SAMPLE SITE LEFT RADIAL; BG TIDAL VOLUME(mL) 400 mL; BG TOTAL HEMOGLOBIN 10.7 g/dL (12.0-18.0); BG VENT MODE VENT - A/C; BG VENT RATE 18 set
[2019-03-28] MEDS: CLOTRIMAZOLE 1% CREAM 30GM TOP SCH (09:00)
[2019-03-28] MEDS ORDERED: ALBUMIN HUMAN 25GM/100ML (25%) IV SCH (09:00)
[2019-03-28] MEDS: METRONIDAZOLE 500 MG PREMIX 100 ML IV SCH ×2 (09:00→18:30)
[2019-03-28] MEDS: QUETIAPINE FUMARATE 25MG TABLET GT SCH ×2 (09:01→21:20)
[2019-03-28] MEDS: FUROSEMIDE 40MG/4ML VIAL IV SCH (09:02)
[2019-03-28] MEDS: PANTOPRAZOLE SODIUM 40 MG/VIAL IV SCH (09:08)
[2019-03-28] MEDS: INSULIN GLARGINE UD 100 UNITS/ML SYR SUBCUT SCH ×2 (10:00→21:21)
[2019-03-28 10:40] LABS: INR 2.1
[2019-03-28] MEDS: CEFEPIME 1,000 MG in DEXTROSE 5% WATER 50 ML IV SCH (13:16)
[2019-03-28] MEDS ORDERED: MIDAZOLAM HCL 5 MG/5 ML VIAL ONE (15:08)
[2019-03-28] MEDS ORDERED: FENTANYL CITRATE/PF 50MCG/ML 2ML VIAL ONE (15:08)
[2019-03-28] MEDS ORDERED: BACTERIOSTATIC SODIUM CHLORIDE 0.9% 30ML VIAL IJ ONE (15:19)
[2019-03-28] MEDS ORDERED: MIDAZOLAM HCL 2 MG/2 ML VIAL IV PRN (15:31)
[2019-03-29] VITALS (66 sets, daily range): BP systolic 87–119; BP diastolic 58–80
[2019-03-29] MEDS: IPRATROPIUM BROMIDE (0.02%) 0.5MG/2.5ML NEB HHN SCH ×6 (00:11→20:36)
[2019-03-29] MEDS: BLOOD SUGAR DIAGNOSTIC STRIP TEST SCH ×6 (00:13→20:00)
[2019-03-29] MEDS: METRONIDAZOLE 500 MG PREMIX 100 ML IV SCH ×3 (00:14→16:00)
[2019-03-29] MEDS: METOCLOPRAMIDE HCL 10MG/2ML VIAL IV SCH ×4 (00:14→18:42)
[2019-03-29] MEDS: CEFEPIME 1,000 MG in DEXTROSE 5% WATER 50 ML IV SCH ×2 (02:00→14:46)
[2019-03-29] MEDS: INSULIN LISPRO 100 UNITS/ML SUBCUT SCH ×6 (05:00→22:07)
[2019-03-29 05:02] LABS: HEMATOCRIT. 30.6 % (42.0-52.0); MEAN CORPUSCULAR HEMOGLOBIN 26.5 pg (28.0-32.0); MEAN CORPUSCULAR VOLUME 81.1 fL (80.0-94.0); MEAN PLATELET VOLUME 9.9 fl (7.4-10.4); RED BLOOD CELL COUNT 3.77 mill/uL (4.7-6.1); RED CELL DISTRIBUTION WIDTH 18.9 % (11.6-14.6)
[2019-03-29 05:21] LABS: PLATELET 42 x1000/uL (130-400)
[2019-03-29 07:10] LABS: PLATELET ESTIMATE MARKEDLY DECREASED
[2019-03-29 07:22] LABS: BG BASE EXCESS 1.2 mmol/L (-2.0-2.0); BG CARBOXYHEMOGLOBIN 1.1 % (0.5-1.5); BG DEOXYHEMOGLOBIN 11.2 % (0.0-5.0); BG HCO3 ACT 25.1 mmol/L (22.0-26.0); BG METHEMOGLOBIN 0.3 % (0.0-1.5); BG OXYGEN SATURATION 88.6 % (92.0-98.5); BG OXYHEMOGLOBIN 87.4 % (94.0-97.0); BG PH 7.449 (7.350-7.450); BG PO2 57.3 mmHg (75.0-100.0); BG SAMPLE SITE RIGHT RADIAL; BG TIDAL VOLUME(mL) 400 mL; BG VENT MODE VENT - A/C; BG VENT RATE 14 set
[2019-03-29] MEDS: BUDESONIDE 0.5MG/2ML NEB HHN SCH ×2 (08:21→20:37)
[2019-03-29] MEDS: FUROSEMIDE 40MG/4ML VIAL IV SCH (09:12)
[2019-03-29] MEDS: QUETIAPINE FUMARATE 25MG TABLET GT SCH ×2 (09:12→22:09)
[2019-03-29] MEDS: CLOTRIMAZOLE 1% CREAM 30GM TOP SCH (09:14)
[2019-03-29] MEDS: INSULIN GLARGINE UD 100 UNITS/ML SYR SUBCUT SCH ×2 (09:18→22:08)
[2019-03-29 10:27] LABS: PHOSPHORUS 3.1 mg/dL (2.5-4.9)
[2019-03-29] MEDS: PANTOPRAZOLE SODIUM 40 MG/VIAL IV SCH (12:12)
[2019-03-29] MEDS ORDERED: VANCOMYCIN 1 G PREMIX 200 ML IV NR (14:00)
[2019-03-30] VITALS (12 sets, daily range): BP systolic 105–124; BP diastolic 65–81
[2019-03-30] MEDS: METRONIDAZOLE 500 MG PREMIX 100 ML IV SCH ×4 (00:11→23:17)
[2019-03-30] MEDS: METOCLOPRAMIDE HCL 10MG/2ML VIAL IV SCH ×5 (00:11→23:17)
[2019-03-30] MEDS: BLOOD SUGAR DIAGNOSTIC STRIP TEST SCH ×7 (00:12→23:17)
[2019-03-30] MEDS: INSULIN LISPRO 100 UNITS/ML SUBCUT SCH ×7 (00:12→23:18)
[2019-03-30] MEDS: IPRATROPIUM BROMIDE (0.02%) 0.5MG/2.5ML NEB HHN SCH ×6 (00:45→20:23)
[2019-03-30] MEDS: CEFEPIME 1,000 MG in DEXTROSE 5% WATER 50 ML IV SCH ×2 (01:40→13:16)
[2019-03-30] MEDS: QUETIAPINE FUMARATE 25MG TABLET GT SCH ×2 (08:04→21:08)
[2019-03-30] MEDS: CLOTRIMAZOLE 1% CREAM 30GM TOP SCH (08:05)
[2019-03-30] MEDS: FUROSEMIDE 40MG/4ML VIAL IV SCH (08:05)
[2019-03-30] MEDS: PANTOPRAZOLE SODIUM 40 MG/VIAL IV SCH (08:05)
[2019-03-30] MEDS: BUDESONIDE 0.5MG/2ML NEB HHN SCH ×2 (08:26→20:23)
[2019-03-30] MEDS: INSULIN GLARGINE UD 100 UNITS/ML SYR SUBCUT SCH ×2 (09:41→21:09)
[2019-03-30 16:21] LABS: HEMATOCRIT. 29.3 % (42.0-52.0); HEMOGLOBIN. 9.5 g/dL (14.0-18.0); MEAN CORPUSCULAR HEMOGLOBIN 26.5 pg (28.0-32.0); MEAN CORPUSCULAR VOLUME 81.4 fL (80.0-94.0); MEAN PLATELET VOLUME 13.2 fl (7.4-10.4)
[2019-03-30 16:27] LABS: PLATELET 48 x1000/uL (130-400)
[2019-03-30] MEDS: DEXTROSE 50% WATER 50ML SYRINGE IV PRN (16:30)
[2019-03-30 17:43] LABS: PLATELET ESTIMATE MARKEDLY DECREASED
[2019-03-31] VITALS (12 sets, daily range): BP systolic 100–115; BP diastolic 45–79
[2019-03-31] MEDS: IPRATROPIUM BROMIDE (0.02%) 0.5MG/2.5ML NEB HHN SCH ×7 (00:46→23:49)
[2019-03-31] MEDS: CEFEPIME 1,000 MG in DEXTROSE 5% WATER 50 ML IV SCH ×2 (01:30→13:24)
[2019-03-31] MEDS: INSULIN LISPRO 100 UNITS/ML SUBCUT SCH ×5 (04:00→21:01)
[2019-03-31] MEDS: METOCLOPRAMIDE HCL 10MG/2ML VIAL IV SCH ×3 (04:47→17:06)
[2019-03-31] MEDS: BLOOD SUGAR DIAGNOSTIC STRIP TEST SCH ×5 (04:48→20:00)
[2019-03-31 07:15] LABS: HEMATOCRIT. 29.6 % (42.0-52.0); MEAN CORPUSCULAR HEMOGLOBIN 27.7 pg (28.0-32.0); MEAN CORPUSCULAR VOLUME 81.7 fL (80.0-94.0); MEAN PLATELET VOLUME 11.7 fl (7.4-10.4); RED BLOOD CELL COUNT 3.62 mill/uL (4.7-6.1)
[2019-03-31 07:42] LABS: PHOSPHORUS 1.2 mg/dL (2.5-4.9)
[2019-03-31] MEDS: PANTOPRAZOLE SODIUM 40 MG/VIAL IV SCH (08:55)
[2019-03-31] MEDS: METRONIDAZOLE 500 MG PREMIX 100 ML IV SCH ×2 (08:55→15:45)
[2019-03-31] MEDS: FUROSEMIDE 40MG/4ML VIAL IV SCH (08:55)
[2019-03-31] MEDS: QUETIAPINE FUMARATE 25MG TABLET GT SCH ×2 (08:56→21:01)
[2019-03-31] MEDS: CLOTRIMAZOLE 1% CREAM 30GM TOP SCH (08:57)
[2019-03-31] MEDS: INSULIN GLARGINE UD 100 UNITS/ML SYR SUBCUT SCH (09:01)
[2019-03-31 09:06] LABS: BG BASE EXCESS 4.6 mmol/L (-2.0-2.0); BG CARBOXYHEMOGLOBIN 0.3 % (0.5-1.5); BG DEOXYHEMOGLOBIN 2.2 % (0.0-5.0); BG FRACTION INSPIRED OXYGEN 35; BG HCO3 ACT 26.7 mmol/L (22.0-26.0); BG METHEMOGLOBIN 0.3 % (0.0-1.5); BG OXYGEN SATURATION 97.8 % (92.0-98.5); BG OXYHEMOGLOBIN 97.2 % (94.0-97.0); BG PH 7.553 (7.350-7.450); BG PO2 109.5 mmHg (75.0-100.0); BG SAMPLE SITE RIGHT BRACHIAL; BG TIDAL VOLUME(mL) 400 mL; BG TOTAL HEMOGLOBIN 10.8 g/dL (12.0-18.0); BG VENT MODE VENT - A/C; BG VENT RATE 14 set
[2019-03-31] MEDS: BUDESONIDE 0.5MG/2ML NEB HHN SCH ×2 (09:22→19:47)
[2019-03-31 10:37] LABS: PLATELET ESTIMATE MARKEDLY DECREASED
[2019-03-31 10:38] LABS: PLATELET 37 x1000/uL (130-400)
[2019-03-31] MEDS ORDERED: VANCOMYCIN 750 MG PREMIX 150 ML IV SCH (12:00)
[2019-03-31] MEDS ORDERED: POTASSIUM PHOS,M-BASIC-D-BASIC 20 MMOL in DEXT 5% WATER 243.3333 ML IV NR ×2 (12:00→16:00)
[2019-04-01] VITALS (12 sets, daily range): BP systolic 87–115; BP diastolic 65–83
[2019-04-01] MEDS: BLOOD SUGAR DIAGNOSTIC STRIP TEST SCH ×7 (00:16→23:44)
[2019-04-01] MEDS: METRONIDAZOLE 500 MG PREMIX 100 ML IV SCH ×2 (00:16→08:50)
[2019-04-01] MEDS: METOCLOPRAMIDE HCL 10MG/2ML VIAL IV SCH ×5 (00:16→23:24)
[2019-04-01] MEDS: INSULIN LISPRO 100 UNITS/ML SUBCUT SCH ×7 (00:28→23:44)
[2019-04-01] MEDS: CEFEPIME 1,000 MG in DEXTROSE 5% WATER 50 ML IV SCH (01:50)
[2019-04-01] MEDS: IPRATROPIUM BROMIDE (0.02%) 0.5MG/2.5ML NEB HHN SCH ×4 (03:56→16:15)
[2019-04-01] MEDS: ACETAMINOPHEN 325MG TABLET PO PRN ×2 (04:40→13:44)
[2019-04-01 05:55] LABS: PHOSPHORUS 2.7 mg/dL (2.5-4.9)
[2019-04-01 06:15] LABS: HEMATOCRIT. 31.3 % (42.0-52.0); HEMOGLOBIN. 10.3 g/dL (14.0-18.0); MEAN CORPUSCULAR VOLUME 82.1 fL (80.0-94.0); MEAN PLATELET VOLUME 10.7 fl (7.4-10.4); RED BLOOD CELL COUNT 3.81 mill/uL (4.7-6.1); RED CELL DISTRIBUTION WIDTH 19.5 % (11.6-14.6)
[2019-04-01 07:25] LABS: PLATELET 37 x1000/uL (130-400)
[2019-04-01] MEDS: BUDESONIDE 0.5MG/2ML NEB HHN SCH (08:38)
[2019-04-01] MEDS: QUETIAPINE FUMARATE 25MG TABLET GT SCH (08:49)
[2019-04-01] MEDS: PANTOPRAZOLE SODIUM 40 MG/VIAL IV SCH (08:49)
[2019-04-01] MEDS: CLOTRIMAZOLE 1% CREAM 30GM TOP SCH (08:52)
[2019-04-01] MEDS ORDERED: POTASSIUM PHOS,M-BASIC-D-BASIC 20 MMOL in DEXT 5% WATER 243.3333 ML IV SCH (11:00)
[2019-04-01 11:04] LABS: PLATELET ESTIMATE MARKEDLY DECREASED
[2019-04-01] MEDS: CARVEDILOL 3.125 MG TABLET PO SCH ×2 (15:07→21:00)
[2019-04-02] VITALS (12 sets, daily range): BP systolic 84–93; BP diastolic 62–70
[2019-04-02] MEDS: IPRATROPIUM BROMIDE (0.02%) 0.5MG/2.5ML NEB HHN SCH ×6 (00:54→21:13)
[2019-04-02] MEDS: INSULIN LISPRO 100 UNITS/ML SUBCUT SCH ×5 (03:59→20:04)
[2019-04-02] MEDS: BLOOD SUGAR DIAGNOSTIC STRIP TEST SCH ×5 (03:59→20:00)
[2019-04-02] MEDS: METOCLOPRAMIDE HCL 10MG/2ML VIAL IV SCH ×3 (05:31→16:39)
[2019-04-02] MEDS: BUDESONIDE 0.5MG/2ML NEB HHN SCH ×2 (08:17→21:13)
[2019-04-02 08:33] LABS: HEMATOCRIT. 30.1 % (42.0-52.0); HEMOGLOBIN. 9.9 g/dL (14.0-18.0); MEAN CORPUSCULAR HEMOGLOBIN 26.8 pg (28.0-32.0); MEAN CORPUSCULAR VOLUME 81.8 fL (80.0-94.0); MEAN PLATELET VOLUME 10.3 fl (7.4-10.4); RED BLOOD CELL COUNT 3.68 mill/uL (4.7-6.1); RED CELL DISTRIBUTION WIDTH 20.2 % (11.6-14.6)
[2019-04-02 08:40] LABS: CHLORIDE 114 mEq/L (98-107)
[2019-04-02] MEDS: PANTOPRAZOLE SODIUM 40 MG/VIAL IV SCH (08:44)
[2019-04-02] MEDS: CLOTRIMAZOLE 1% CREAM 30GM TOP SCH (08:44)
[2019-04-02] MEDS: CARVEDILOL 3.125 MG TABLET PO SCH ×2 (08:45→20:05)
[2019-04-02 08:47] LABS: PHOSPHORUS 3.5 mg/dL (2.5-4.9)
[2019-04-02 08:48] LABS: PLATELET 27 x1000/uL (130-400)
[2019-04-02 09:43] LABS: PLATELET ESTIMATE MARKEDLY DECREASED
[2019-04-02] MEDS: DEXT 5%/0.45% NACL 1000ML 1,000 ML IV SCH (14:27)
[2019-04-02 15:42] LABS: CLARITY URINE TURBID (CLEAR); COLOR URINE DARK YELLOW (YELLOW); KETONES URINE TRACE (NEGATIVE); LEUKOCYTE ESTERASE URINE TRACE (NEGATIVE); NITRITE URINE NEGATIVE (NEGATIVE); OCCULT BLOOD URINE 3+ (NEGATIVE); PROTEIN URINE 2+ (NEGATIVE); SPECIFIC GRAVITY URINE 1.019 (1.005-1.030); UROBILINOGEN URINE 0.2 E.U./dL (0.2-1.0)
[2019-04-02] MEDS: MIDODRINE HCL 5MG TABLET PO SCH ×2 (16:40→20:05)
[2019-04-03] VITALS (13 sets, daily range): BP systolic 84–154; BP diastolic 58–95
[2019-04-03] MEDS: METOCLOPRAMIDE HCL 10MG/2ML VIAL IV SCH ×5 (00:04→23:43)
[2019-04-03] MEDS: DEXT 5%/0.45% NACL 1000ML 1,000 ML IV SCH (00:05)
[2019-04-03] MEDS: IPRATROPIUM BROMIDE (0.02%) 0.5MG/2.5ML NEB HHN SCH ×5 (01:57→20:38)
[2019-04-03] MEDS: BLOOD SUGAR DIAGNOSTIC STRIP TEST SCH ×7 (04:00→23:43)
[2019-04-03] MEDS: INSULIN LISPRO 100 UNITS/ML SUBCUT SCH ×7 (04:05→23:43)
[2019-04-03 07:11] LABS: HEMATOCRIT. 31.9 % (42.0-52.0); HEMOGLOBIN. 10.3 g/dL (14.0-18.0); MEAN CORPUSCULAR HEMOGLOBIN 26.6 pg (28.0-32.0); MEAN CORPUSCULAR VOLUME 82.2 fL (80.0-94.0); MEAN PLATELET VOLUME 7.4 fl (7.4-10.4); RED BLOOD CELL COUNT 3.87 mill/uL (4.7-6.1); RED CELL DISTRIBUTION WIDTH 20.1 % (11.6-14.6)
[2019-04-03 07:30] LABS: CHLORIDE 114 mEq/L (98-107)
[2019-04-03 07:41] LABS: PHOSPHORUS 3.5 mg/dL (2.5-4.9)
[2019-04-03 07:54] LABS: PLATELET 19 x1000/uL (130-400)
[2019-04-03] MEDS: CARVEDILOL 3.125 MG TABLET PO SCH ×2 (09:00→21:00)
[2019-04-03] MEDS: CLOTRIMAZOLE 1% CREAM 30GM TOP SCH (09:22)
[2019-04-03] MEDS: MIDODRINE HCL 5MG TABLET PO SCH ×3 (09:23→18:01)
[2019-04-03] MEDS ORDERED: OMEPRAZOLE 20MG CAPSULE EXTENDED RELEASE PO SCH (09:30)
[2019-04-03] MEDS: DEXTROSE 5% WATER 1,000 ML IV SCH ×3 (10:14→23:20)
[2019-04-03 10:15] LABS: PLATELET ESTIMATE MARKEDLY DECREASED
[2019-04-03] MEDS: INSULIN GLARGINE UD 100 UNITS/ML SYR SUBCUT SCH (10:16)
[2019-04-03] MEDS: BUDESONIDE 0.5MG/2ML NEB HHN SCH ×2 (11:50→20:38)
[2019-04-04] VITALS (12 sets, daily range): BP systolic 83–101; BP diastolic 59–73
[2019-04-04] MEDS: IPRATROPIUM BROMIDE (0.02%) 0.5MG/2.5ML NEB HHN SCH ×6 (00:37→20:16)
[2019-04-04] MEDS: INSULIN LISPRO 100 UNITS/ML SUBCUT SCH ×4 (04:00→17:58)
[2019-04-04] MEDS: BLOOD SUGAR DIAGNOSTIC STRIP TEST SCH ×4 (04:35→17:59)
[2019-04-04] MEDS: METOCLOPRAMIDE HCL 10MG/2ML VIAL IV SCH ×3 (05:49→17:02)
[2019-04-04] MEDS: DEXTROSE 5% WATER 1,000 ML IV SCH ×2 (05:50→17:58)
[2019-04-04 06:29] LABS: HEMATOCRIT. 31.8 % (42.0-52.0); HEMOGLOBIN. 10.2 g/dL (14.0-18.0); MEAN CORPUSCULAR HEMOGLOBIN 26.4 pg (28.0-32.0); MEAN CORPUSCULAR VOLUME 82.2 fL (80.0-94.0); MEAN PLATELET VOLUME 7.4 fl (7.4-10.4); RED BLOOD CELL COUNT 3.86 mill/uL (4.7-6.1); RED CELL DISTRIBUTION WIDTH 21.3 % (11.6-14.6)
[2019-04-04 06:29] LABS: CHLORIDE 108 mEq/L (98-107)
[2019-04-04 06:43] LABS: PLATELET 19 x1000/uL (130-400)
[2019-04-04 06:49] LABS: PHOSPHORUS 3.9 mg/dL (2.5-4.9)
[2019-04-04] MEDS: LANSOPRAZOLE 30MG DR CAPSULE GT SCH (08:29)
[2019-04-04] MEDS: CLOTRIMAZOLE 1% CREAM 30GM TOP SCH (08:30)
[2019-04-04] MEDS: CARVEDILOL 3.125 MG TABLET PO SCH ×2 (08:30→20:54)
[2019-04-04] MEDS: MIDODRINE HCL 5MG TABLET PO SCH ×3 (08:30→17:02)
[2019-04-04] MEDS: BUDESONIDE 0.5MG/2ML NEB HHN SCH ×2 (09:09→20:16)
[2019-04-04] MEDS: INSULIN GLARGINE UD 100 UNITS/ML SYR SUBCUT SCH (11:06)
[2019-04-04 12:04] LABS: CLARITY URINE CLOUDY (CLEAR); COLOR URINE DARK YELLOW (YELLOW); KETONES URINE TRACE (NEGATIVE); LEUKOCYTE ESTERASE URINE TRACE (NEGATIVE); NITRITE URINE NEGATIVE (NEGATIVE); OCCULT BLOOD URINE 3+ (NEGATIVE); PROTEIN URINE 1+ (NEGATIVE); SPECIFIC GRAVITY URINE 1.017 (1.005-1.030); UROBILINOGEN URINE 0.2 E.U./dL (0.2-1.0)
[2019-04-04 16:33] LABS: PLATELET ESTIMATE MARKEDLY DECREASED
[2019-04-05] VITALS (12 sets, daily range): BP systolic 85–110; BP diastolic 50–77
[2019-04-05] MEDS: BLOOD SUGAR DIAGNOSTIC STRIP TEST SCH ×5 (00:08→23:28)
[2019-04-05] MEDS: METOCLOPRAMIDE HCL 10MG/2ML VIAL IV SCH ×5 (00:12→23:29)
[2019-04-05] MEDS: IPRATROPIUM BROMIDE (0.02%) 0.5MG/2.5ML NEB HHN SCH ×6 (00:29→21:05)
[2019-04-05] MEDS: INSULIN LISPRO 100 UNITS/ML SUBCUT SCH ×5 (05:37→23:28)
[2019-04-05] MEDS: DEXTROSE 5% WATER 1,000 ML IV SCH (07:10)
[2019-04-05] MEDS: BUDESONIDE 0.5MG/2ML NEB HHN SCH ×2 (08:19→21:05)
[2019-04-05 08:25] LABS: BG BASE EXCESS -0.6 mmol/L (-2.0-2.0); BG CARBOXYHEMOGLOBIN 0.6 % (0.5-1.5); BG DEOXYHEMOGLOBIN 2.1 % (0.0-5.0); BG FRACTION INSPIRED OXYGEN 40; BG HCO3 ACT 22.7 mmol/L (22.0-26.0); BG METHEMOGLOBIN 0.1 % (0.0-1.5); BG OXYGEN SATURATION 97.9 % (92.0-98.5); BG OXYHEMOGLOBIN 97.2 % (94.0-97.0); BG PCO2 32.7 mmHg (35.0-45.0); BG PH 7.459 (7.350-7.450); BG PO2 110.2 mmHg (75.0-100.0); BG PRESSURE SUPPORT 12; BG SAMPLE SITE RIGHT RADIAL; BG TIDAL VOLUME(mL) 500 mL; BG TOTAL HEMOGLOBIN 11.7 g/dL (12.0-18.0); BG VENT MODE VENT - SIMV; BG VENT RATE 10 set
[2019-04-05] MEDS: LANSOPRAZOLE 30MG DR CAPSULE GT SCH (08:31)
[2019-04-05] MEDS: MIDODRINE HCL 5MG TABLET PO SCH ×3 (08:32→17:06)
[2019-04-05] MEDS: CLOTRIMAZOLE 1% CREAM 30GM TOP SCH (08:32)
[2019-04-05] MEDS: CARVEDILOL 3.125 MG TABLET PO SCH ×2 (09:00→21:16)
[2019-04-05 09:45] LABS: HEMATOCRIT. 32.4 % (42.0-52.0); HEMOGLOBIN. 10.4 g/dL (14.0-18.0); MEAN CORPUSCULAR HEMOGLOBIN 26.5 pg (28.0-32.0); MEAN CORPUSCULAR VOLUME 82.6 fL (80.0-94.0); MEAN PLATELET VOLUME 8.9 fl (7.4-10.4); RED BLOOD CELL COUNT 3.93 mill/uL (4.7-6.1)
[2019-04-05 10:15] LABS: PLATELET 12 x1000/uL (130-400)
[2019-04-05 12:02] LABS: CHLORIDE 104 mEq/L (98-107)
[2019-04-05 12:19] LABS: PHOSPHORUS 4.1 mg/dL (2.5-4.9)
[2019-04-05] MEDS: INSULIN GLARGINE UD 100 UNITS/ML SYR SUBCUT SCH (13:31)
[2019-04-05 13:40] LABS: PLATELET ESTIMATE MARKEDLY DECREASED
[2019-04-05] MEDS: DEXT 5%/0.45% NACL 1000ML 1,000 ML IV SCH (17:06)
[2019-04-06] VITALS (15 sets, daily range): BP systolic 83–116; BP diastolic 52–80
[2019-04-06] MEDS: IPRATROPIUM BROMIDE (0.02%) 0.5MG/2.5ML NEB HHN SCH ×4 (02:18→20:00)
[2019-04-06] MEDS: BLOOD SUGAR DIAGNOSTIC STRIP TEST SCH ×4 (05:19→23:41)
[2019-04-06] MEDS: DEXT 5%/0.45% NACL 1000ML 1,000 ML IV SCH (05:19)
[2019-04-06] MEDS: METOCLOPRAMIDE HCL 10MG/2ML VIAL IV SCH ×4 (05:19→23:47)
[2019-04-06] MEDS: INSULIN LISPRO 100 UNITS/ML SUBCUT SCH ×4 (05:26→23:51)
[2019-04-06] MEDS: LANSOPRAZOLE 30MG DR CAPSULE GT SCH (08:25)
[2019-04-06] MEDS: CARVEDILOL 3.125 MG TABLET PO SCH (08:26)
[2019-04-06] MEDS: MIDODRINE HCL 5MG TABLET PO SCH ×3 (08:26→17:49)
[2019-04-06] MEDS: CLOTRIMAZOLE 1% CREAM 30GM TOP SCH (08:27)
[2019-04-06] MEDS: BUDESONIDE 0.5MG/2ML NEB HHN SCH ×2 (08:58→20:00)
[2019-04-06 09:19] LABS: HEMATOCRIT. 33.3 % (42.0-52.0); HEMOGLOBIN. 10.9 g/dL (14.0-18.0); MEAN CORPUSCULAR HEMOGLOBIN 27.1 pg (28.0-32.0); MEAN CORPUSCULAR VOLUME 82.7 fL (80.0-94.0); MEAN PLATELET VOLUME 10.4 fl (7.4-10.4); RED BLOOD CELL COUNT 4.02 mill/uL (4.7-6.1); RED CELL DISTRIBUTION WIDTH 21.8 % (11.6-14.6)
[2019-04-06 09:25] LABS: PLATELET 48 x1000/uL (130-400)
[2019-04-06] MEDS: INSULIN GLARGINE UD 100 UNITS/ML SYR SUBCUT SCH (11:07)
[2019-04-06] MEDS ORDERED: FUROSEMIDE 40MG/4ML VIAL IVP NR (13:45)
[2019-04-06 15:19] LABS: PLATELET ESTIMATE MARKEDLY DECREASED
[2019-04-07] VITALS (12 sets, daily range): BP systolic 90–107; BP diastolic 55–67
[2019-04-07] MEDS: IPRATROPIUM BROMIDE (0.02%) 0.5MG/2.5ML NEB HHN SCH ×4 (01:52→20:20)
[2019-04-07] MEDS: BLOOD SUGAR DIAGNOSTIC STRIP TEST SCH ×3 (05:33→17:43)
[2019-04-07] MEDS: INSULIN LISPRO 100 UNITS/ML SUBCUT SCH ×3 (05:34→17:49)
[2019-04-07] MEDS: METOCLOPRAMIDE HCL 10MG/2ML VIAL IV SCH ×3 (05:34→17:36)
[2019-04-07 07:14] LABS: HEMATOCRIT. 32.1 % (42.0-52.0); HEMOGLOBIN. 10.7 g/dL (14.0-18.0); MEAN CORPUSCULAR HEMOGLOBIN 27.1 pg (28.0-32.0); MEAN CORPUSCULAR VOLUME 81.3 fL (80.0-94.0); RED BLOOD CELL COUNT 3.95 mill/uL (4.7-6.1); RED CELL DISTRIBUTION WIDTH 21.3 % (11.6-14.6)
[2019-04-07 07:28] LABS: BG BASE EXCESS 0.2 mmol/L (-2.0-2.0); BG CARBOXYHEMOGLOBIN 0.6 % (0.5-1.5); BG DEOXYHEMOGLOBIN 4.6 % (0.0-5.0); BG HCO3 ACT 22.8 mmol/L (22.0-26.0); BG METHEMOGLOBIN 0.2 % (0.0-1.5); BG OXYGEN SATURATION 95.4 % (92.0-98.5); BG OXYHEMOGLOBIN 94.6 % (94.0-97.0); BG PCO2 30.8 mmHg (35.0-45.0); BG PH 7.488 (7.350-7.450); BG PO2 79.1 mmHg (75.0-100.0); BG SAMPLE SITE RIGHT RADIAL; BG TIDAL VOLUME(mL) 500 mL; BG TOTAL HEMOGLOBIN 11.8 g/dL (12.0-18.0); BG VENT MODE VENT - A/C; BG VENT RATE 12 set
[2019-04-07 07:35] LABS: PHOSPHORUS 3.8 mg/dL (2.5-4.9)
[2019-04-07 08:01] LABS: PLATELET 21 x1000/uL (130-400)
[2019-04-07] MEDS: BUDESONIDE 0.5MG/2ML NEB HHN SCH ×2 (08:28→20:23)
[2019-04-07] MEDS: LANSOPRAZOLE 30MG DR CAPSULE GT SCH (10:03)
[2019-04-07] MEDS: CLOTRIMAZOLE 1% CREAM 30GM TOP SCH (10:03)
[2019-04-07] MEDS: MIDODRINE HCL 5MG TABLET PO SCH ×3 (10:03→17:31)
[2019-04-07] MEDS: INSULIN GLARGINE UD 100 UNITS/ML SYR SUBCUT SCH (10:04)
[2019-04-07 11:36] LABS: PLATELET ESTIMATE MARKEDLY DECREASED
[2019-04-07] MEDS ORDERED: DOCUSATE SODIUM 250MG CAPSULE PO SCH (12:45)
[2019-04-07] MEDS: DOCUSATE SODIUM SUGAR FREE 100MG/10ML UDC GT SCH (18:30)
[2019-04-08] VITALS (12 sets, daily range): BP systolic 88–106; BP diastolic 56–71
[2019-04-08] MEDS: BLOOD SUGAR DIAGNOSTIC STRIP TEST SCH ×5 (00:03→23:22)
[2019-04-08] MEDS: MICAFUNGIN 100 MG in SODIUM CHLORIDE 0.9% 100 ML IV SCH ×2 (00:03→22:10)
[2019-04-08] MEDS: METOCLOPRAMIDE HCL 10MG/2ML VIAL IV SCH ×5 (00:03→23:22)
[2019-04-08] MEDS: INSULIN LISPRO 100 UNITS/ML SUBCUT SCH ×5 (00:16→23:28)
[2019-04-08] MEDS: IPRATROPIUM BROMIDE (0.02%) 0.5MG/2.5ML NEB HHN SCH ×4 (01:57→20:30)
[2019-04-08 07:56] LABS: HEMATOCRIT. 31.9 % (42.0-52.0); HEMOGLOBIN. 10.5 g/dL (14.0-18.0); MEAN CORPUSCULAR HEMOGLOBIN 27.1 pg (28.0-32.0); MEAN CORPUSCULAR VOLUME 82.3 fL (80.0-94.0); MEAN PLATELET VOLUME 10.2 fl (7.4-10.4); RED BLOOD CELL COUNT 3.88 mill/uL (4.7-6.1); RED CELL DISTRIBUTION WIDTH 22.6 % (11.6-14.6)
[2019-04-08] MEDS: BUDESONIDE 0.5MG/2ML NEB HHN SCH ×2 (08:16→20:31)
[2019-04-08 08:17] LABS: PLATELET 22 x1000/uL (130-400)
[2019-04-08] MEDS: CLOTRIMAZOLE 1% CREAM 30GM TOP SCH (08:34)
[2019-04-08] MEDS: MIDODRINE HCL 5MG TABLET PO SCH ×3 (08:34→17:41)
[2019-04-08] MEDS: DOCUSATE SODIUM SUGAR FREE 100MG/10ML UDC GT SCH (08:34)
[2019-04-08] MEDS: LANSOPRAZOLE 30MG DR CAPSULE GT SCH (08:34)
[2019-04-08 08:54] LABS: PHOSPHORUS 3.7 mg/dL (2.5-4.9)
[2019-04-08] MEDS: INSULIN GLARGINE UD 100 UNITS/ML SYR SUBCUT SCH (09:20)
[2019-04-08 09:43] LABS: NUCLEATED RED BLOOD CELLS 1 /100 WBC; PLATELET ESTIMATE MARKEDLY DECREASED
[2019-04-08] MEDS ORDERED: TRAMADOL 50MG TABLET PO PRN (14:30)
[2019-04-09] VITALS (12 sets, daily range): BP systolic 90–109; BP diastolic 59–72
[2019-04-09] MEDS: IPRATROPIUM BROMIDE (0.02%) 0.5MG/2.5ML NEB HHN SCH ×4 (01:54→20:09)
[2019-04-09] MEDS: METOCLOPRAMIDE HCL 10MG/2ML VIAL IV SCH ×3 (05:06→17:59)
[2019-04-09] MEDS: BLOOD SUGAR DIAGNOSTIC STRIP TEST SCH ×3 (05:06→17:31)
[2019-04-09] MEDS: INSULIN LISPRO 100 UNITS/ML SUBCUT SCH ×3 (05:13→17:32)
[2019-04-09 07:02] LABS: PHOSPHORUS 3.8 mg/dL (2.5-4.9)
[2019-04-09 07:06] LABS: HEMOGLOBIN. 10.6 g/dL (14.0-18.0); MEAN CORPUSCULAR HEMOGLOBIN 27.2 pg (28.0-32.0); MEAN CORPUSCULAR VOLUME 82.1 fL (80.0-94.0); MEAN PLATELET VOLUME 10.6 fl (7.4-10.4); RED CELL DISTRIBUTION WIDTH 22.1 % (11.6-14.6)
[2019-04-09 08:09] LABS: PLATELET 21 x1000/uL (130-400)
[2019-04-09] MEDS: MIDODRINE HCL 5MG TABLET PO SCH ×3 (08:10→17:59)
[2019-04-09] MEDS: LANSOPRAZOLE 30MG DR CAPSULE GT SCH (08:10)
[2019-04-09] MEDS: DOCUSATE SODIUM SUGAR FREE 100MG/10ML UDC GT SCH (08:11)
[2019-04-09] MEDS: CLOTRIMAZOLE 1% CREAM 30GM TOP SCH (08:11)
[2019-04-09 09:33] LABS: PLATELET ESTIMATE MARKEDLY DECREASED
[2019-04-09] MEDS ORDERED: POTASSIUM CHLORIDE INJ 40 MEQ in DEXT 5% WATER 250 ML IV NR (10:00)
[2019-04-09] MEDS: INSULIN GLARGINE UD 100 UNITS/ML SYR SUBCUT SCH (11:00)
[2019-04-09] MEDS: MICAFUNGIN 100 MG in SODIUM CHLORIDE 0.9% 100 ML IV SCH (22:11)
[2019-04-10] VITALS (27 sets, daily range): BP systolic 80–173; BP diastolic 48–82
[2019-04-10] MEDS: BLOOD SUGAR DIAGNOSTIC STRIP TEST SCH ×4 (00:40→17:50)
[2019-04-10] MEDS: METOCLOPRAMIDE HCL 10MG/2ML VIAL IV SCH ×4 (00:50→17:49)
[2019-04-10] MEDS: INSULIN LISPRO 100 UNITS/ML SUBCUT SCH ×4 (00:50→18:00)
[2019-04-10] MEDS: IPRATROPIUM BROMIDE (0.02%) 0.5MG/2.5ML NEB HHN SCH ×4 (01:38→21:03)
[2019-04-10 05:50] LABS: PHOSPHORUS 4.1 mg/dL (2.5-4.9)
[2019-04-10] MEDS ORDERED: FUROSEMIDE 40MG/4ML VIAL IVP SCH (09:30)
[2019-04-10] MEDS ORDERED: DIGOXIN 500MCG/2ML AMP IV SCH (09:30)
[2019-04-10 09:46] LABS: BG BASE EXCESS -1.1 mmol/L (-2.0-2.0); BG CARBOXYHEMOGLOBIN 0.1 % (0.5-1.5); BG DEOXYHEMOGLOBIN 5.9 % (0.0-5.0); BG FRACTION INSPIRED OXYGEN 100; BG HCO3 ACT 21.4 mmol/L (22.0-26.0); BG METHEMOGLOBIN 0.4 % (0.0-1.5); BG OXYGEN SATURATION 94.1 % (92.0-98.5); BG OXYHEMOGLOBIN 93.6 % (94.0-97.0); BG PCO2 29.1 mmHg (35.0-45.0); BG PH 7.484 (7.350-7.450); BG PO2 70.4 mmHg (75.0-100.0); BG SAMPLE SITE RIGHT RADIAL; BG TIDAL VOLUME(mL) 500 mL; BG TOTAL HEMOGLOBIN 11.9 g/dL (12.0-18.0); BG VENT MODE VENT - A/C; BG VENT RATE 12 set
[2019-04-10] MEDS: LANSOPRAZOLE 30MG DR CAPSULE GT SCH (10:09)
[2019-04-10] MEDS: CLOTRIMAZOLE 1% CREAM 30GM TOP SCH (10:10)
[2019-04-10] MEDS: MIDODRINE HCL 5MG TABLET PO SCH ×3 (10:10→17:50)
[2019-04-10] MEDS: INSULIN GLARGINE UD 100 UNITS/ML SYR SUBCUT SCH (10:32)
[2019-04-10 10:34] LABS: HEMATOCRIT. 33.7 % (42.0-52.0); MEAN CORPUSCULAR HEMOGLOBIN 26.8 pg (28.0-32.0); MEAN CORPUSCULAR VOLUME 82.3 fL (80.0-94.0); MEAN PLATELET VOLUME 10.9 fl (7.4-10.4); RED CELL DISTRIBUTION WIDTH 22.5 % (11.6-14.6)
[2019-04-10 10:50] LABS: PLATELET 23 x1000/uL (130-400)
[2019-04-10] MEDS ORDERED: ALBUMIN HUMAN 25GM/100ML (25%) IV SCH (11:00)
[2019-04-10 12:53] LABS: PLATELET ESTIMATE MARKEDLY DECREASED
[2019-04-10] MEDS: DOCUSATE SODIUM SUGAR FREE 100MG/10ML UDC GT SCH (17:49)
[2019-04-10 20:20] LABS: BG BASE EXCESS -3.3 mmol/L (-2.0-2.0); BG CARBOXYHEMOGLOBIN 0.6 % (0.5-1.5); BG DEOXYHEMOGLOBIN 11.7 % (0.0-5.0); BG FRACTION INSPIRED OXYGEN 100; BG METHEMOGLOBIN 0.3 % (0.0-1.5); BG OXYGEN SATURATION 88.2 % (92.0-98.5); BG OXYHEMOGLOBIN 87.4 % (94.0-97.0); BG PCO2 30.3 mmHg (35.0-45.0); BG PH 7.437 (7.350-7.450); BG PO2 56.7 mmHg (75.0-100.0); BG SAMPLE SITE RIGHT RADIAL; BG TIDAL VOLUME(mL) 500 mL; BG TOTAL HEMOGLOBIN 11.4 g/dL (12.0-18.0); BG VENT MODE VENT - A/C; BG VENT RATE 12 set
[2019-04-10] MEDS: PHENYLEPHRINE 40 MG in DEXT 5% WATER 246 ML IV PRN (21:10)
[2019-04-10] MEDS: FENTANYL CITRATE/PF 500 MCG in SODIUM CHLORIDE 0.9% 40 ML IV PRN (21:11)
[2019-04-10] MEDS ORDERED: ACETYLCYSTEINE 100MG/ML 10% VIAL 4ML INH SCH (22:00)
[2019-04-10] MEDS ORDERED: INSULIN GLARGINE UD 100 UNITS/ML SYR SUBCUT SCH (22:00)
[2019-04-10] MEDS: MICAFUNGIN 100 MG in SODIUM CHLORIDE 0.9% 100 ML IV SCH (22:39)
[2019-04-11] VITALS (28 sets, daily range): BP systolic 60–100; BP diastolic 41–69
[2019-04-11] MEDS: INSULIN LISPRO 100 UNITS/ML SUBCUT SCH
[2019-04-11] MEDS ORDERED: LORAZEPAM 2MG/ML CPJ IV PRN (00:15)
[2019-04-11] MEDS ORDERED: NOREPINEPHRINE 16 MG in DEXT 5% WATER 234 ML IV PRN (00:15)
[2019-04-11] MEDS: METOCLOPRAMIDE HCL 10MG/2ML VIAL IV SCH (00:22)
[2019-04-11] MEDS: NOREPINEPHRINE 16 MG in DEXT 5% WATER 234 ML IV PRN ×2 (00:30→07:58)
[2019-04-11] MEDS: BLOOD SUGAR DIAGNOSTIC STRIP TEST SCH (00:52)
[2019-04-11] MEDS: FENTANYL CITRATE/PF 500 MCG in SODIUM CHLORIDE 0.9% 40 ML IV PRN (01:46)
[2019-04-11] MEDS: PHENYLEPHRINE 40 MG in DEXT 5% WATER 246 ML IV PRN (01:47)
[2019-04-11 06:15] LABS: CHLORIDE 105 mEq/L (98-107)
[2019-04-11 06:28] LABS: PHOSPHORUS 4.9 mg/dL (2.5-4.9)
[2019-04-11 06:54] LABS: HEMATOCRIT. 33.2 % (42.0-52.0); HEMOGLOBIN. 10.6 g/dL (14.0-18.0); MEAN CORPUSCULAR HEMOGLOBIN 26.6 pg (28.0-32.0); RED CELL DISTRIBUTION WIDTH 25.7 % (11.6-14.6)
[2019-04-11 07:04] LABS: PLATELET 18 x1000/uL (130-400)
[2019-04-11 08:32] LABS: PLATELET ESTIMATE MARKEDLY DECREASED
== END 2019-04-11 07:35 | disposition expired | DRG 3 ==
LOC: ER 06:05 → EDBEDREQ 08:12 → EDBEDREQSVC 08:12 → EDBEDREQTM 08:12 → 5EST 09:21 → EDBEDREQTM 09:26 → EDBEDREQ 09:26 → ENRESERV 09:42 → 5EST 15:15 → MICUSO 03-25 17:40 → 5EST 03-29 16:30 → CVICU 04-10 20:12
PROVIDERS: ADMIT Internal Medicine; ATTEND Internal Medicine
PROC: 5A1955Z Respiratory Ventilation, Greater than 96 Consecutive Hours (ICD-10-PCS; principal; 2019-03-19)
PROC: 02HV33Z Insertion of Infusion Device into Superior Vena Cava, Percutaneous Approach (ICD-10-PCS; 2019-03-20)
PROC: B548ZZA Ultrasonography of Superior Vena Cava, Guidance (ICD-10-PCS; 2019-03-20)
PROC: 30233R1 Transfusion of Nonautologous Platelets into Peripheral Vein, Percutaneous Approach (ICD-10-PCS; 2019-03-22)
PROC: 06H03DZ Insertion of Intraluminal Device into Inferior Vena Cava, Percutaneous Approach (ICD-10-PCS; 2019-03-26)
PROC: 0B110F4 Bypass Trachea to Cutaneous with Tracheostomy Device, Open Approach (ICD-10-PCS; 2019-03-27)
PROC: 0GBJ0ZZ Excision of Thyroid Gland Isthmus, Open Approach (ICD-10-PCS; 2019-03-27)
PROC: 30233K1 Transfusion of Nonautologous Frozen Plasma into Peripheral Vein, Percutaneous Approach (ICD-10-PCS; 2019-03-27)
PROC: 0DH63UZ Insertion of Feeding Device into Stomach, Percutaneous Approach (ICD-10-PCS; 2019-03-28)
DX: A41.9 Sepsis, unspecified organism (principal); N17.0 Acute kidney failure with tubular necrosis; I50.23 Acute on chronic systolic (congestive) heart failure; E43 Unspecified severe protein-calorie malnutrition; I21.4 Non-ST elevation (NSTEMI) myocardial infarction; J16.8 Pneumonia due to other specified infectious organisms; J96.21 Acute and chronic respiratory failure with hypoxia; K72.00 Acute and subacute hepatic failure without coma; J44.1 Chronic obstructive pulmonary disease with (acute) exacerbation; N39.0 Urinary tract infection, site not specified; J44.0 Chronic obstructive pulmonary disease with (acute) lower respiratory infection; C34.92 Malignant neoplasm of unspecified part of left bronchus or lung; D68.4 Acquired coagulation factor deficiency; D68.59 Other primary thrombophilia; I13.0 Hypertensive heart and chronic kidney disease with heart failure and stage 1 through stage 4 chronic kidney disease, or unspecified chronic kidney disease; I47.1 Supraventricular tachycardia; I82.411 Acute embolism and thrombosis of right femoral vein; J91.0 Malignant pleural effusion; R18.8 Other ascites; Z99.11 Dependence on respirator [ventilator] status; E87.0 Hyperosmolality and hypernatremia; N28.0 Ischemia and infarction of kidney; I25.5 Ischemic cardiomyopathy; I27.20 Pulmonary hypertension, unspecified; Z68.31 Body mass index [BMI] 31.0-31.9, adult; B35.3 Tinea pedis; E11.22 Type 2 diabetes mellitus with diabetic chronic kidney disease; E11.649 Type 2 diabetes mellitus with hypoglycemia without coma; E11.65 Type 2 diabetes mellitus with hyperglycemia; E27.9 Disorder of adrenal gland, unspecified; E83.39 Other disorders of phosphorus metabolism; E78.00 Pure hypercholesterolemia, unspecified; E78.5 Hyperlipidemia, unspecified; I25.10 Atherosclerotic heart disease of native coronary artery without angina pectoris; K81.9 Cholecystitis, unspecified; I25.2 Old myocardial infarction; I49.3 Ventricular premature depolarization; Z66 Do not resuscitate; I50.84 End stage heart failure; I07.1 Rheumatic tricuspid insufficiency; K29.70 Gastritis, unspecified, without bleeding; J98.4 Other disorders of lung; K76.0 Fatty (change of) liver, not elsewhere classified; L89.152 Pressure ulcer of sacral region, stage 2; E87.6 Hypokalemia; N18.9 Chronic kidney disease, unspecified; N28.89 Other specified disorders of kidney and ureter; N40.0 Benign prostatic hyperplasia without lower urinary tract symptoms; Z51.5 Encounter for palliative care; Z78.1 Physical restraint status; Z79.4 Long term (current) use of insulin; Z82.49 Family history of ischemic heart disease and other diseases of the circulatory system; Z87.891 Personal history of nicotine dependence; Z93.1 Gastrostomy status; Z95.5 Presence of coronary angioplasty implant and graft; Z95.810 Presence of automatic (implantable) cardiac defibrillator; Z95.828 Presence of other vascular implants and grafts; Z79.82 Long term (current) use of aspirin; Z79.84 Long term (current) use of oral hypoglycemic drugs
CPT/HCPCS: 36415; 36600; 37191; 71045; 71250; 76700; 76937; 80048; 80076; 80202; 80305; 81003; 82105; 82248; 82270; 82375; 82550; 82805; 82947; 82962; 83605; 83735; 83880; 83935; 84100; 84145; 84484; 85049; 86705; 86709; 86803; 86850; 86900; 86927; 86945; 87015; 87045; 87070; 87077; 87107; 87186; 87340; 87389; 87427; 87449; 87493; 93005; 93306; 93970; 94002; 94003; 94640; 94660; 97166; 97530; 99291; C1725; C1769; C1880; C9113; J0456; J0692; J0696; J1160; J1644; J1815; J1940; J2060; J2248; J2250; J2370; J2765; J2920; J2930; J3010; J3370; J3430; J3480; J3490; J7030; J7050; J7060; J7070; J7608; J7626; P9017; P9034; P9047; Q9967